=== PATIENT | female | born 1995 | race Caucasian/White ===

== ENCOUNTER → 2018-01-12 18:02 | Outpatient (CLI) | payer BC, OTHER, SELFPAY ==
[2018-01-12 20:22] LABS: Group B Strep DNA By PCR Negative (Negative); Internal Control PASS; Probe Check PASS; Specimen Processing Control PASS
== END ==
PROVIDERS: Family Provider Nurse Practitioner Family; PCP Nurse Practitioner Family; Visit Provider Nurse Practitioner Women's Health
DX: Z34.93 Encounter for supervision of normal pregnancy, unspecified, third trimester (principal); Z3A.36 36 weeks gestation of pregnancy
CPT/HCPCS: 87081; 87653

== ENCOUNTER 2018-02-05 05:55 | Inpatient (IN) | payer BC, OTHER, SELFPAY ==
[2018-02-05] MEDS: Lactated Ringers 1,000 ML 50 ML IV ×2 (06:55→10:21)
[2018-02-05 07:38] VITALS: BMI 40.5
[2018-02-05 07:42] LABS: Hematocrit 39.2 % (37-47); Hemoglobin 14.1 g/dl (12.0-15.0); Mean Corpuscular Hgb 32.4 pg (27.0-32.0); Mean Corpuscular Volume 90.1 fL (81-99); Mean Platelet Vol. 10.5 fl (6.2-12.0); Platelet Count 209 K/mm3 (150-450); RBC Distribution Width CV 13.3 % (11.6-14.6); RBC Distribution Width SD 43.4 fl (35.1-43.9); Red Blood Count 4.35 M/mm3 (4.2-5.4)
[2018-02-05 07:50] LABS: Scan Indicated on CBC? Y/N NO
[2018-02-05 08:17] LABS: ALB/GLOB Ratio 0.7 RATIO (0.9-2.4); AST(SGOT) 10 U/L (15-37); Alanine Aminotransfer ALT/SGPT 10 U/L (13-56); Albumin, Serum 2.8 g/dL (3.2-5.0); Alkaline Phosphatase 177 U/L (45-117); Anion Gap 9 (5-15); BUN 6 mg/dL (7-18); BUN/Creat Ratio 13.2 RATIO (10-20); Calcium,Total 8.6 mg/dL (8.5-10.1); Chloride 107 mmol/L (98-107); Creatinine, Serum 0.46 mg/dL (0.55-1.02); EST Glomerular Filtration Rate 181 mL/min (>60); Est Glom Filt Rate - Afr Amer 219 mL/min (>60); Estimated Creatinine Clearance 179.58 ml/min; Globulin 3.8 g/dL (2.2-4.2); Glucose 92 mg/dL (74-106); Potassium 3.8 mmol/L (3.5-5.1); Protein, Total 6.6 g/dL (6.4-8.2); Sodium Level 137 mmol/L (136-145)
[2018-02-05] MEDS: Ondansetron 4 MG/2 ML Vial IV (08:33)
[2018-02-05] MEDS: fentaNYL-bupivacaine (epidural) 100 ML BAG EPIDURAL (08:50)
[2018-02-05 08:54] LABS: Protein, Urine (Random) 58.3 mg/dL (<11.9); Protein:Creat Ratio 259 mg/g CRE (0-200)
--- NOTE | 2018-02-05 10:20 | PCM.HP.OB ---
- Problem List (1) Active labor at term Status: Acute (2) IUD contraception Status: Acute Comment: plan iud pp at 6 week visit (3) Supervision of normal , antepartum Status: Acute Qualifiers: Comment: PRR ANGELA 02/04/18 boy Dann PC gordon Obed (4) History of pre-eclampsia in prior , currently Status: Acute Comment: baby ASA at 16 weeks (5) Abnormal glucose in , antepartum Status: Acute Comment: normal 3 hour gtt History Date of Admission: 02/05/18 Final ANGELA: 02/04/18 Gestational age: 40 Weeks and 1 Days History of this : 2 yo @ 40w1d presents IAL. she has had an uncomplicated All Active Problems (Last Reviewed 02/01/18 @ 13:44 by Lyric Draper) IUD contraception (Acute) Supervision of normal , antepartum (Acute) History of pre-eclampsia in prior , currently (Acute) Abnormal glucose in , antepartum (Acute) Depression with anxiety (Acute) Evaluate anatomy not seen on prior sonogram (Ruled-out) Pertinent Past Medical History: Past Medical History (Last Reviewed 02/01/18 @ 13:44 by Lyric Draper) History of pre-eclampsia in prior , currently (Acute) history of gallbladder sugery (Acute) Past Surgical History (Last Reviewed 01/25/18 @ 14:07 by Magaly Squires) gallbladder surgery (Acute) Mom's Labs & Results 02/05/18 02/05/18 02/05/18 07:00 07:00 07:00 WBC 13.0 H RBC 4.35 Hgb 14.1 Hct 39.2 MCV 90.1 MCH 32.4 H MCHC 36.0 RDW 13.3 RDW Differential 43.4 Plt Count 209 MPV 10.5 Sodium 137 Potassium 3.8 Chloride 107 Carbon Dioxide 21.0 Anion Gap 9 BUN 6 L Creatinine 0.46 L Estim Creat Clear Calc 179.58 Est GFR (MDRD) Af Amer 219 Est GFR (MDRD) Non-Af 181 BUN/Creatinine Ratio 13.2 Glucose 92 Calcium 8.6 Total Bilirubin 0.70 AST 10 L ALT 10 L Alkaline Phosphatase 177 H Total Protein 6.6 Albumin 2.8 L Globulin 3.8 Albumin/Globulin Ratio 0.7 L U Random Total Protein Urine Creatinine Protein/Creatinin Ratio Blood Type O POSITIVE Antibody Screen NEGATIVE 02/05/18 08:25 WBC RBC Hgb Hct MCV MCH MCHC RDW RDW Differential Plt Count MPV Sodium Potassium Chloride Carbon Dioxide Anion Gap BUN Creatinine Estim Creat Clear Calc Est GFR (MDRD) Af Amer Est GFR (MDRD) Non-Af BUN/Creatinine Ratio Glucose Calcium Total Bilirubin AST ALT Alkaline Phosphatase Total Protein Albumin Globulin Albumin/Globulin Ratio U Random Total Protein 58.3 H Urine Creatinine 225.00 Protein/Creatinin Ratio 259 H Blood Type Antibody Screen Course Did the patient receive Yes care? Labs Blood Type: O RH: POSITIVE RPR/VDRL/Syphilis Nonreactive Rubella status Immune HbSAg Negative Date Done: 08/22/17 Chlamydia Negative Gonorrhea Negative HIV/AIDS Non-Reactive Group B Strep: Negative Current Obstetrical History Gestational Diabetes No Incompetent Cervix No Infertility No IUGR No Macrosomia No Hypertension/Pre-eclampsia No Placenta Previa/Abruption No PTL/PROM No Uterine anomaly No Oligohydramnios No Polyhydramnios No Multiple gestation No Past Medical History Asthma No Diabetes No Hypertension No Heart disease No Mitral valve prolapse No Neurologic/Seizure disorder/ No Migraines Kidney disease No Liver disease No Varicosities No Clotting disorders/Hx of DVT No Thyroid Dysfunction No Other medical diseases No Psychiatric disorders Yes: depression Major trauma No Abnormal PAP smear No Sleep apnea No Mammogram in the last 2 years No Social History Marital Status: Alleged father Obed Hx Smoking No Smoking Status Never smoker Allergies No Known Allergies Allergy (Verified 02/05/18 07:39) Current Medications Acetaminophen (Tylenol) 325 - 650 mg PO Q4H PRN PRN PRN Reason: PAIN OR FEVER >100.4F Al Hydroxide/Mg Hydroxide (Mylanta Ii) 15 - 30 ml PO Q4H PRN PRN PRN Reason: INDIGESTION Citric Acid/Sodium Citrate (Bicitra) 30 ml PO UD PRN Lactated Ringer's () 1,000 mls @ 50 mls/hr IV .Q20H JONATHAN Last Admin: 02/05/18 06:55 Dose: 50 mls/hr Naloxone HCl 4 mg/ Dextrose 504 mls @ 0 mls/hr IV PRN PRN; Protocol PRN Reason: TO MAINTAIN RR>10 Nalbuphine HCl (Nubain) 5 - 10 mg IV Q3H PRN PRN PRN Reason: PAIN (4-10/10) Nalbuphine HCl (Nubain) 5 mg IV Q3H PRN PRN Reason: ITCHING Stop: 02/06/18 09:24 Naloxone HCl (Narcan) 0.2 mg IV Q1M PRN PRN Reason: RR<10 AND PT UNRESPONSIVE Stop: 02/06/18 09:24 Ondansetron HCl (Zofran) 4 mg IV Q8H PRN PRN PRN Reason: NAUSEA Last Admin: 02/05/18 08:33 Dose: 4 mg Promethazine HCl (Phenergan) 6.25 - 12.5 mg IV Q4H PRN PRN; Protocol PRN Reason: IF NAUSEA PERSISTS Sodium Chloride () 5 - 15 ml IV UD JONATHAN Last Admin: 02/05/18 07:45 Dose: Not Given Smoking Status: Never smoker Alcohol: None Drug Use: none Number of Fetus(es): 1 - fht 130s moderate variability reactive no deceles toco q5-10 Review of Systems Constitutional: Denies: Chills, Fever, Weight Change HEENT: Denies: Head Aches, Sinus Congestion, Sinus Drainage Cardiovascular: Denies: Chest Pain, Palpitations Respiratory: Denies: Cough, Shortness of breath at rest, Sputum production Gastrointestinal: Reports: Abdominal Pain, Nausea. Denies: Vomiting Genitourinary: Denies: Dysuria Gynecological: Reports: Vaginal bleeding, Vaginal discharge Musculoskeletal: Denies: Joint Pain, Joint Tenderness Skin: Denies: Rash, Wounds Neurological: Denies: Numbness, Tingling, Focal weakness Psychiatric: Denies: Anxiety, Depression, Homicidal Ideations, Suicidal Ideations Hematologic/ Lymphatic: Denies: Easy Bruising, Easy Bleeding Physical Exam General: Alert, Oriented x3 Cardiovascular: Regular rate Lungs: Normal air movement Abdomen: Soft, Gravid Estimated gestational size: Appropriate for gestational size Presentation: Cephalic Cervix Dilation (cm): 5 Assessment/Plan Active and Suspected Problems (Last Reviewed 02/01/18 @ 13:44 by Lyric Draper) Active labor at term (Acute) 22 yo @ 40w1d presents IAL expectant managment arom clear fluid gbs negative borderline elevated bps- negative proteinuria and normal pree labs
[2018-02-05] MEDS: Oxytocin 30 units/NS 500 ml 30 UNITS/500 ML IV.SOLN 334 UNITS IV (12:01)
[2018-02-05] MEDS: Oxytocin 30 units/NS 500 ml 30 UNITS/500 ML IV.SOLN 167 UNITS IV (12:35)
[2018-02-05] MEDS: 0.9% Saline Lock 10 ML Syringe IV (14:00)
[2018-02-05 16:27] VITALS: BP 116/60; PULSE 103; RESP 16; TEMP 37
[2018-02-05 20:05] VITALS: BP 132/80; PULSE 87; RESP 16; TEMP 36.8; O2SAT 98
[2018-02-05] MEDS: Naproxen 250 MG Tablet PO (20:11)
[2018-02-06 00:40] VITALS: BP 137/96; PULSE 77; RESP 16; TEMP 36.3; O2SAT 98
[2018-02-06 03:45] VITALS: BP 136/94; PULSE 76; RESP 16; TEMP 36.4; O2SAT 98
--- NOTE | 2018-02-06 07:40 | PCM.PN.OB ---
Patient Problems: Active and Suspected Problems (Last Reviewed 02/01/18 @ 13:44 by Lyric Draper) Active labor at term (Acute) Subjective: Denies SOB, CP, NV. Doing well. - Physical Exam General: Alert, Oriented x3 Abdomen: Non Tender, - - FF below U Vital Signs Temp Pulse Resp BP Pulse Ox 97.6 F L 76 16 136/94 H 98 02/06/18 03:45 02/06/18 03:45 02/06/18 03:45 02/06/18 03:45 02/06/18 03:45 Oxygen Delivery Method Room Air Weight: 251 lb Body Mass Index (BMI) 40.5 Intake and Output for Last 24 Hours 02/04/18 02/05/18 02/06/18 23:59 23:59 23:59 Intake Total 1874 / 1874 Output Total 500 / 500 Balance 1374 / 1374 Laboratory Tests Past 24 Hrs 02/05/18 02/05/18 02/05/18 07:00 07:00 07:00 WBC 13.0 H RBC 4.35 Hgb 14.1 Hct 39.2 MCV 90.1 MCH 32.4 H MCHC 36.0 RDW 13.3 RDW Differential 43.4 Plt Count 209 MPV 10.5 Sodium 137 Potassium 3.8 Chloride 107 Carbon Dioxide 21.0 Anion Gap 9 BUN 6 L Creatinine 0.46 L Estim Creat Clear Calc 179.58 Est GFR (MDRD) Af Amer 219 Est GFR (MDRD) Non-Af 181 BUN/Creatinine Ratio 13.2 Glucose 92 Calcium 8.6 Total Bilirubin 0.70 AST 10 L ALT 10 L Alkaline Phosphatase 177 H Total Protein 6.6 Albumin 2.8 L Globulin 3.8 Albumin/Globulin Ratio 0.7 L U Random Total Protein Urine Creatinine Protein/Creatinin Ratio Blood Type O POSITIVE Antibody Screen NEGATIVE 02/05/18 08:25 WBC RBC Hgb Hct MCV MCH MCHC RDW RDW Differential Plt Count MPV Sodium Potassium Chloride Carbon Dioxide Anion Gap BUN Creatinine Estim Creat Clear Calc Est GFR (MDRD) Af Amer Est GFR (MDRD) Non-Af BUN/Creatinine Ratio Glucose Calcium Total Bilirubin AST ALT Alkaline Phosphatase Total Protein Albumin Globulin Albumin/Globulin Ratio U Random Total Protein 58.3 H Urine Creatinine 225.00 Protein/Creatinin Ratio 259 H Blood Type Antibody Screen Medical Necessity - Tobacco Use Smoking Status: Never smoker Assessment/Plan Active and Suspected Problems (Last Reviewed 02/01/18 @ 13:44 by Lyric Draper) Active labor at term (Acute) PPD #1 Doing well. Normal lochia. Pain controlled with OTC Aleve. Bottle feeding. Rh positive. Plans home later today
--- NOTE | 2018-02-06 07:43 | DCINST_ITS ---
Discharge Diet: No Restrictions Discharge Activity: Return to Normal Activity, May not drive while taking narcotic pain medications., May Shower May resume sexual activity in: 4-6 weeks Additional Activity Instructions:: Nothing in the vagina for 4-6 weeks. You may return to work/school in 6 weeks. Call your doctor if your incision/area has: Continuous Slow Oozing, Sudden Increased Bleeding, Increased Pain/ Swelling, Increased Redness, Foul Smelling Discharge Additional Instructions: If you experience any of the following, contact your healthcare provider. * Bleeding that soaks a pad every hour for 2 hours * Fever 100.4 or higher * Unrelieved incision or abdominal pain * Swelling, redness, discharge or bleeding from your incision or episiotomy site * Your incision begins to separate * Problems urinating (including inability to urinate or burning while urinating) . * Visual changes * Severe headache * Flu-like symptoms * Pain or redness in one of both of your breasts * Pain, warmth, tenderness or swelling in your legs, especially the calf area * Frequent nausea and vomiting * Symptoms of depression or anxiety If you experience any of the following, call 911 or go to the nearest Emergency Room. * Chest pain * Problems breathing * Seizure activity * Partial or complete paralysis of a body part, slurred speech, weakness or drooping of the face, or a sudden inability to walk or hold your balance Allergies/Adverse Reactions: Allergies No Known Allergies Allergy (Verified 02/05/18 07:39) Medications to take at Discharge vitamins no.106-iron 27.5 mg-folate no.6 1 mg-dha capsule 1 cap PO QDAY 09/25/17 ranitidine 150 mg tablet 150 mg PO BID #60 tab 09/25/17 citalopram 20 mg tablet 20 mg PO QDAY #30 tab 12/01/17 When: Call to make an appointment with your doctor in 6 weeks. If you had elevated Blood Pressure or 4th degree laceration you will need to be seen in 2 weeks. Primary Care Physician: Shonna Villanueva NP-C [Primary Care Provider] -
[2018-02-06 08:30] VITALS: BP 127/65; PULSE 88; RESP 18; TEMP 36.6; O2SAT 98
--- NOTE | 2018-02-06 08:31 | PCM.OB.VAG ---
- Problem List (1) Active labor at term Status: Acute (2) IUD contraception Status: Acute Comment: plan iud pp at 6 week visit (3) Supervision of normal , antepartum Status: Acute Qualifiers: Comment: PRR ANGELA 02/04/18 boy Dann leyva Obed (4) History of pre-eclampsia in prior , currently Status: Acute Comment: baby ASA at 16 weeks (5) Abnormal glucose in , antepartum Status: Acute Comment: normal 3 hour gtt Vaginal Delivery Maternal Presentation: Active Labor ial Amniotic Membrane Rupture Type: Artificial Amniotic Fluid Description: Clear Final ANGELA: 02/04/18 Gestational age: 40 Weeks and 2 Days Date of Procedure: 02/05/18 Pre-Operative Diagnosis: ial Post-Operative Diagnosis: same Surgery/ Procedure Performed: Spontaneous Vaginal Delivery Type of Anesthesia: Epidural Description of Procedure: Patient began pushing and delivered the head in the CHINEDU presentation. The head was delivered atraumatically . The anterior and posterior shoulders delivered without complication followed by the rest of the infant and the infant was placed on the maternal abdomen. Delayed cord clamping was employed for approximately 60 seconds. Cord was clamped and cut and gentle traction was applied to the cord and the placenta delivered spontaneously immediately following it was noted to be intact with three-vessel cord. The perineum and vagina were inspected and noted to have a small first-degree perineal laceration that was repaired in the usual fashion with 3-0 Vicryl Rapide. EBL was 300 cc. Patient and infant tolerated delivery well. Presentation: CHINEDU Placental Delivery Description: Spontaneous Cord Entanglement: None Episiotomy Description: None Laceration: Perineal Extension/lac, 1st degree Medications given after delivery: IV Pitocin Complications: None
[2018-02-06 11:59] VITALS: BP 113/67; PULSE 88; RESP 18; TEMP 36.7; O2SAT 96
== END 2018-02-06 14:15 | disposition home or self-care (01) | DRG 775 ==
PROVIDERS: Admitting Provider Obstetrics & Gynecology; Family Provider Nurse Practitioner Family; PCP Nurse Practitioner Family; Visit Provider Obstetrics & Gynecology
DX: O48.0 Post-term pregnancy (principal); Z3A.40 40 weeks gestation of pregnancy; Z37.0 Single live birth; O70.0 First degree perineal laceration during delivery
CPT/HCPCS: 59050; 80053; 82570; 84156; 85027; 86850; 86900; 99218; J7120; A4216; G0378; J2405

== ENCOUNTER → 2021-07-13 | Outpatient (CLI) | payer OTHER, SELFPAY ==
[2021-07-16 19:58] LABS: HPV Reflexed? NOT INDICATED
== END | disposition home or self-care (01) ==
LOC: LABSPEC 14:09
PROVIDERS: Referring Provider Physician Assistant; Visit Provider Physician Assistant
DX: Z12.4 Encounter for screening for malignant neoplasm of cervix (principal)
CPT/HCPCS: 88175; G0145

== ENCOUNTER → 2023-03-23 | Outpatient (CLI) | payer OTHER, SELFPAY ==
[2023-03-23 10:24] LABS: ALB/GLOB Ratio 1.1 RATIO (0.9-2.4); AST(SGOT) 19 U/L (15-37); Alanine Aminotransfer ALT/SGPT 39 U/L (13-56); Alkaline Phosphatase 77 U/L (45-117); Anion Gap 7 (5-15); BUN 7 mg/dL (7-18); BUN/Creat Ratio 9.9 RATIO (10-20); Calcium,Total 9.3 mg/dL (8.5-10.1); Chloride 106 mmol/L (98-107); Cholesterol 170 mg/dL (200); Creatinine, Serum 0.71 mg/dL (0.55-1.02); EST Glomerular Filtration Rate 105 mL/min (>60); Est Glom Filt Rate - Afr Amer 127 mL/min (>60); Globulin 3.5 g/dL (2.2-4.2); Glucose 118 mg/dL (74-106); High Density Lipoprotein 60 mg/dL; Potassium 3.8 mmol/L (3.5-5.1); Protein, Total 7.5 g/dL (6.4-8.2); Sodium Level 137 mmol/L (136-145); T4 Free Direct 1.04 ng/dL (0.76-1.46); Thyroid Stim Hormone (TSH) 0.96 uIU/mL (0.358-3.74); Triglycerides 109 mg/dL; Very Low Density Lipoprotein 22 mg/dL (5-40)
== END | disposition home or self-care (01) ==
LOC: PAVLAB 09:34
PROVIDERS: Nurse Practitioner Women's Health; Referring Provider Obstetrics & Gynecology; Visit Provider Obstetrics & Gynecology
DX: R63.5 Abnormal weight gain (principal); Z13.1 Encounter for screening for diabetes mellitus; Z13.220 Encounter for screening for lipoid disorders; Z13.29 Encounter for screening for other suspected endocrine disorder; Z13.21 Encounter for screening for nutritional disorder
CPT/HCPCS: 36415; 80053; 80061; 82306; 84439; 84443

== ENCOUNTER → 2023-05-02 | Outpatient (CLI) | payer OTHER, SELFPAY ==
[2023-05-05 07:08] LABS: Chlamydia By Nucleic Acid AMP Negative (Negative); Gonococcus By Nucleic Acid AMP Negative (Negative)
== END | disposition home or self-care (01) ==
LOC: LABSPEC 11:53
PROVIDERS: Referring Provider Obstetrics & Gynecology; Visit Provider Obstetrics & Gynecology
DX: Z34.90 Encounter for supervision of normal pregnancy, unspecified, unspecified trimester (principal)
CPT/HCPCS: 87086; 87088; 87491; 87591

== ENCOUNTER → 2023-05-03 | Outpatient (CLI) | payer OTHER, SELFPAY ==
--- NOTE | 2023-05-03 18:26 | US_ITS ---
STUDY: FIRST TRIMESTER OBSTETRICAL ULTRASOUND REASON FOR EXAM: Female, 27 years old THREATENED LMP: 02/20/2023 TECHNIQUE: Transvaginal TECHNICAL QUALITY: Adequate. PRIOR ULTRASOUND: None. FINDINGS: There is visualization of a single gestational sac in a normal intrauterine position. The mean sac diameter (MSD) measures 45 mm, indicating an estimated gestational age (EGA) of 10 weeks, 0 days. The gestational sac shape is within normal limits. There is a visualized yolk sac. The yolk sac measures 5 mm. The placenta is non-visualized. There is visualization of a live embryo. The crown-rump length (CRL) measures 41 mm, indicating an estimated gestational age (EGA) of 10 weeks, 5 days. There is demonstrated cardiac activity with a heart rate of 174 bpm. The estimated gestation age (EGA) by LMP is 10 weeks, 2 days. The estimated date of delivery (ANGELA) by LMP is 11/27/2023. The estimated gestation age (EGA) by US is 10 weeks, 3 days. The estimated date of delivery (ANGELA) by US is to 1124. The uterus measures 12.0 x 6.2 x 8.4 cm. There is no demonstrated uterine fibroid. The cervix is closed. The right ovary measures 2.8 x 1.6 x 2.1 cm. There is no right ovarian cyst. There is no visualized right adnexal mass or complex lesion. The left ovary measures 3.0 x 1.8 x 2.4 cm. There is no left ovarian cyst. There is no visualized left adnexal mass or complex lesion. There is no fluid in the cul de sac. US/Init OB < 14Wks US IMPRESSION: Living intrauterine of 10 weeks 3 days as described above. Electronically Signed: José Miguel Huber MD at 21:24 EDT ,
== END | disposition home or self-care (01) ==
PROVIDERS: Referring Provider Obstetrics & Gynecology; Visit Provider Obstetrics & Gynecology
DX: O20.0 Threatened abortion (principal); Z3A.00 Weeks of gestation of pregnancy not specified
CPT/HCPCS: 76801

== ENCOUNTER → 2023-05-10 | Outpatient (CLI) | payer OTHER, SELFPAY ==
[2023-05-10 09:12] LABS: Absolute Lymphocyte Count 1.15 X10^3/uL (0.83-4.51); Absolute Neutrophil Count 5.4 X10^3/uL (2.0-7.7); Basophil# 0.02 X10^3/uL; Basophil% 0.3 % (0-1); Eosinophil# 0.07 X10^3/uL; Hemoglobin 14.3 g/dL (12.0-15.0); Lymphocyte # 1.15 X10^3/ul (0.83-4.51); Lymphocyte % 16.6 % (19-41); Mean Corp Hgb Conc 35.8 g/dL (32-36); Mean Corpuscular Hgb 31.7 pg (27.0-32.0); Mean Corpuscular Volume 88.7 fL (81-99); Mean Platelet Vol. 9.1 fl (6.2-12.0); Monocyte# 0.24 X10^3/uL; Monocyte% 3.5 % (0-10); NRBC Flagged by Analyzer 0 % (0-5); Neutrophil # 5.42 X10^3/uL (2.7-7.7); Neutrophil % 78.3 % (47-70); Platelet Count 258 K/mm3 (150-450); RBC Distribution Width CV 11.9 % (11.6-14.6); RBC Distribution Width SD 37.8 fl (35.1-43.9); Red Blood Count 4.51 M/mm3 (4.2-5.4); White Blood Count 6.9 K/mm3 (4.4-11.0)
[2023-05-10 09:38] LABS: AST(SGOT) 10 U/L (15-37); Alanine Aminotransfer ALT/SGPT 23 U/L (13-56); Albumin, Serum 3.5 g/dL (3.2-5.0); Alkaline Phosphatase 58 U/L (45-117); Anion Gap 7 (5-15); BUN 5 mg/dL (7-18); BUN/Creat Ratio 7.1 RATIO (10-20); Calcium,Total 8.6 mg/dL (8.5-10.1); Chloride 106 mmol/L (98-107); EST Glomerular Filtration Rate 106 mL/min (>60); Est Glom Filt Rate - Afr Amer 128 mL/min (>60); Globulin 3.5 g/dL (2.2-4.2); Glucose 198 mg/dL (74-106); Glucose Challenge Gest 1H 50g 198 mg/dL (70-140); Potassium 3.5 mmol/L (3.5-5.1); Sodium Level 136 mmol/L (136-145)
[2023-05-10 10:06] LABS: NATERA MAILED SPECIMEN
[2023-05-10 10:38] LABS: HIV - WCH Non-Reactive (Nonreactive); Hepatitis B Surface Antigen Non-Reactive (Nonreactive); Hepatitis C Antibody Non-Reactive (Nonreactive); Rubella IgG Reactive (Nonreactive); Syphilis Antibodies Non-reactive
== END | disposition home or self-care (01) ==
PROVIDERS: Referring Provider Obstetrics & Gynecology; Visit Provider Obstetrics & Gynecology
DX: Z34.90 Encounter for supervision of normal pregnancy, unspecified, unspecified trimester (principal)
CPT/HCPCS: 36415; 80053; 82950; 85025; 86703; 86762; 86780; 86803; 86850; 86900; 86901; 87340

== ENCOUNTER 2023-07-24 13:16 | Emergency (ER) | payer OTHER, SELFPAY ==
[2023-07-24 13:17] VITALS: BP 128/62; PULSE 111; RESP 14; TEMP 36.4; O2SAT 98; BMI 44.1
--- NOTE | 2023-07-24 13:54 | CT_ITS ---
STUDY: CT ABDOMEN AND PELVIS WITH CONTRAST REASON FOR EXAM: Female, 28 years old. Abdominal pain, 22 weeks . RADIATION DOSAGE (If Supplied By Facility): CTDIvol = ( 14.27 ) mGy, DLP = ( 1199.67 ) mGycm TECHNIQUE: Transaxial images were obtained from the dome of the diaphragm to the symphysis pubis without oral contrast. ml of 100mL Isovue-300 contrast was administered. Sagittal and coronal images were reconstructed. Individualized dose optimization techniques were used for this CT. COMPARISON: OB ultrasound dated May 03, 2023 FINDINGS: The visualized lung bases are unremarkable. The visualized portions of the heart are within normal limits. Normal liver. There are surgical clips in the gallbladder fossa consistent with a prior cholecystectomy. Minimal splenic enlargement at 14 cm. The spleen is otherwise normal.. Normal pancreas. Normal bilateral adrenal glands. A 1 mm punctate calyceal stone is present in the upper pole calyx of the right kidney as seen on image 47/134 series 2. A 4 mm calyceal stone is seen in the lower pole of the left kidney. No visualized hydronephrosis. Normal remaining aspects of the left kidney. Single intrauterine fetus in the second/third trimester noted. The uterus is otherwise grossly unremarkable. No adnexal abnormalities are seen. No ascites or focal fluid collections are present abdomen or pelvis. Normal visualized stomach. Normal small intestine. Normal colon. The appendix is visualized and appears normal. Normal abdominal aorta. Normal inferior vena cava. Normal retroperitoneum. Normal urinary bladder. Normal abdominal wall. There are diffuse degenerative changes of the visualized lumbar spine. CT/Abdomen/Pelvis W IV Cont ONLY IMPRESSION: 1. Bilateral nonobstructing kidney stones 2. A 1 mm punctate calyceal stone is present in the upper pole calyx of the right kidney as seen on image 47/134 series 2. A 4 mm calyceal stone is seen in the lower pole of the left kidney. No visualized hydronephrosis. Normal remaining aspects of the left kidney. 3. Single intrauterine fetus in the second/third trimester noted. The uterus is otherwise grossly unremarkable. No adnexal abnormalities are seen. No ascites or focal fluid collections are present abdomen or pelvis. Electronically Signed: Guanako Blair MD at 15:47 EDT Reading Location ID and State: [facility] / [place] , Service support ,
[2023-07-24] MEDS: 0.9% Normal Saline (500mL Bag) 500 ML 1000 ML IV (14:05)
[2023-07-24 14:06] LABS: Bacteria 0 SEEN /hpf (None Seen); Mucous, Urine 0 SEEN /hpf (<or=2+); Red Blood Cells-Urine 0 SEEN /hpf (0-5)
[2023-07-24 14:09] LABS: Color, Urine Straw (Yellow); Glucose, Dipstick Normal (Normal); Ketone-Dipstick 50 mg/dl (Negative); Leukocyte Esterase-Dipstick 500 /ul (Negative); Nitrite-Dipstick Negative (Negative); Occult Blood-Urine Negative /ul (Negative); Protein-Dipstick Negative (Negative); Urine Bilirubin Dipstick Negative (Negative); Urine Clarity Clear (Clear); Urine Urobilinogen Normal (Normal)
[2023-07-24 14:17] LABS: Absolute Lymphocyte Count 0.48 X10^3/uL (0.83-4.51); Absolute Neutrophil Count 4.9 X10^3/uL (2.0-7.7); Basophil# 0.02 X10^3/uL; Basophil% 0.3 % (0-1); Eosinophil# 0.01 X10^3/uL; Eosinophils% 0.2 % (0-5); Hematocrit 37.6 % (37-47); Hemoglobin 13.3 g/dL (12.0-15.0); Lymphocyte # 0.48 X10^3/ul (0.83-4.51); Lymphocyte % 8.3 % (19-41); Mean Corp Hgb Conc 35.4 g/dL (32-36); Mean Corpuscular Hgb 32.2 pg (27.0-32.0); Mean Platelet Vol. 9.5 fl (6.2-12.0); Monocyte# 0.34 X10^3/uL; Monocyte% 5.9 % (0-10); NRBC Flagged by Analyzer 0 % (0-5); Neutrophil # 4.91 X10^3/uL (2.7-7.7); POSITIVE DIFFERENTIAL YES; Platelet Count 179 K/mm3 (150-450); RBC Distribution Width CV 13.1 % (11.6-14.6); RBC Distribution Width SD 42.5 fl (35.1-43.9); Red Blood Count 4.13 M/mm3 (4.2-5.4); White Blood Count 5.8 K/mm3 (4.4-11.0)
[2023-07-24 14:18] LABS: Squamous Epithelial Cells - UA 0-5 SEEN /hpf (5-10); White Blood Cells 5-10 SEEN /hpf (0-5)
[2023-07-24 14:34] LABS: ALB/GLOB Ratio 0.9 RATIO (0.9-2.4); AST(SGOT) 19 U/L (15-37); Alanine Aminotransfer ALT/SGPT 31 U/L (13-56); Alkaline Phosphatase 58 U/L (45-117); Anion Gap 6 (5-15); BUN 3 mg/dL (7-18); BUN/Creat Ratio 5.2 RATIO (10-20); Calcium,Total 8.8 mg/dL (8.5-10.1); Chloride 105 mmol/L (98-107); Creatinine, Serum 0.58 mg/dL (0.55-1.02); EST Glomerular Filtration Rate 132 mL/min (>60); Est Glom Filt Rate - Afr Amer 160 mL/min (>60); Estimated Creatinine Clearance 135.19 ml/min; Globulin 3.2 g/dL (2.2-4.2); Glucose 90 mg/dL (74-106); Potassium 3.7 mmol/L (3.5-5.1); Protein, Total 6.2 g/dL (6.4-8.2); Sodium Level 136 mmol/L (136-145)
[2023-07-24 14:39] LABS: Differential Indicated SCAN CRITERIA MET
--- NOTE | 2023-07-24 15:02 | EDS_ITS ---
HPI History of Present Illness Chief Complaint: Abd Pain Narrative Narrative: To the emergency department with right lower quadrant abdominal pain, she is 22 weeks . No nausea or vomiting or anorexia. No vaginal bleeding. No back pain or flank pain. She does not have any urinary symptoms. [facility] Medical History Gestational diabetes History of pre-eclampsia in prior , currently Home Medications fluoxetine 20 mg capsule (Prozac) 20 mg PO DAILY #30 caps 03/23/23 [Rx Last Ta ciara Unknown] famotidine 10 mg tablet 10 mg PO DAILY 04/25/23 [History Last Taken Unknown] vitamins no.163-iron bis-gly 20 mg-folate no.10 1 mg tablet (PNV Tabs 20-1) 1 tab PO DAILY 04/25/23 [History Last Taken Unknown] ondansetron 4 mg disintegrating tablet 4 mg PO Q4H PRN nausea and vomiting #60 tabs 04/26/23 [Rx Last Taken Unknown] blood sugar diagnostic (Blood Glucose Test strips) #120 ea 05/10/23 [Rx Last Taken Unknown] blood-glucose meter #1 ea 05/10/23 [Rx Last Taken Unknown] lancets #200 ea 05/10/23 [Rx Last Taken Unknown] insulin NPH isoph U-100 human 100 unit/mL subcutaneous suspension (Novolin N NPH U-100 Insulin isophane) 10 unit subcut QPM 06/26/23 [History Last Taken Unknown] Allergy/AdvReac Type Severity Reaction Status Date / Time No Known Allergies Allergy Verified 07/24/23 13:17 Family History Mother Hypertension Surgical History Hx laparoscopic cholecystectomy [place] teeth extracted Social History adopted: No household members: spouse, children and other details: Mother number of children: 2 current occupational status: employed current occupation: [employer] current occupational exposures/hazards: No pets and animals: Yes pets and animals: dog(s) history of recent travel: Yes ([place]) out of state: Yes out of country: No sexually active: Yes Smoking Status: Never smoker second hand exposure: No alcohol intake: never substance use type: does not use well-balanced diet: daily or most days caffeine: Yes Type: tea Number of servings: 1 eating out: 1-3 times/week during the past year weight has: increased > 10 lbs what type of physical activity do you participate in: walking frequency: 3-4 times per week duration: 15-30 minutes/day linnea/congregational: None seatbelt use: always do you feel safe at home: Yes additional social history: spouse 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- [employer]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[employer] ROS ROS ED ROS Narrative All systems negative except as indicated General: No fever Eyes: No visual changes ENT: No upper airway congestion, normal voice Neck: No neck pain Cardiovascular: No chest pain Respiratory: No shortness of breath or cough Gastrointestinal: Abdominal pain as in HPI Genitourinary: No dysuria Musculoskeletal: Denies myalgias no difficulty with ambulation Skin: No rash Neurological: No memory loss, confusion or any focal weakness EXAM Physical Exam Narrative Exam Narrative: Physical exam General: Well nourished, Well developed, No Acute Distress Head: Normocephalic, Atraumatic Eyes: Conjunctiva not pale ENT: Moist mucous membranes Neck: Supple, Nontender, No lymphadenopathy Cardiovascular: Regular rate, Regular rhythm Respiratory: No distress, CTA bilaterally Abdomen: Soft,, there is tenderness in the right lower quadrant and right mid quadrant. There is slight guarding but no rebound. Back: Nontender, Normal Inspection. Negative for: CVA tenderness Extremities: Nontender, No edema Skin: Normal color, No rash Neurological: Alert, Normal Strength, Normal Sensation Const Vital Signs: 07/24/23 13:17 Temperature 97.6 F L Temperature Source Temporal Pulse Rate 111 H Respiratory Rate 14 Blood Pressure 128/62 H Blood Pressure Mean 84 Pulse Ox 98 Oxygen Delivery Method Room Air MDM MDM MDM Narrative Medical decision making narrative: Patient was seen by OB prior and they are worried about appendicitis after my initial exam I had similar concerns, she is however she is second trimester and risk of radiation is relatively low compared to missing appendicitis. We made a decision together with the patient and she is okay with the CT. This was done. Bilateral kidney stones which are passing of a 2 on the right side could be very close to passing which may cause some of her symptoms. Regardless she feels well, she does not feel ill now does not require analgesia and I will discharge her home. She did have some leuk esterase on urinalysis but the rest the urinalysis was negative I do not believe she has a UTI and she is asymptomatic. Lab Data Labs: Laboratory Results - last 24 hr 07/24/23 07/24/23 14:00 14:05 WBC 5.8 RBC 4.13 L Hgb 13.3 Hct 37.6 MCV 91.0 MCH 32.2 H MCHC 35.4 RDW Std Deviation 42.5 RDW Coeff of Lisbeth 13.1 Plt Count 179 MPV 9.5 Immature Gran % (Auto) 0.300 Neut % (Auto) 85.0 H Lymph % (Auto) 8.3 L Tillman % (Auto) 5.9 Eos % (Auto) 0.2 Baso % (Auto) 0.3 Absolute Neuts (auto) 4.9 Absolute Lymphs (auto) 0.48 L Nucleated RBC % 0 Sodium 136 Potassium 3.7 Chloride 105 Carbon Dioxide 25.0 Anion Gap 6 BUN 3 L Creatinine 0.58 Estim Creat Clear Calc 135.19 Est GFR (MDRD) Af Amer 160 Est GFR (MDRD) Non-Af 132 BUN/Creatinine Ratio 5.2 L Glucose 90 Calcium 8.8 Total Bilirubin 0.70 AST 19 ALT 31 Alkaline Phosphatase 58 Total Protein 6.2 L Albumin 3.0 L Globulin 3.2 Albumin/Globulin Ratio 0.9 Urine Color Straw Urine Clarity Clear Urine pH 7.0 Ur Specific [place] 1.010 Urine Protein Negative Urine Glucose (UA) Normal Urine Ketones 50 H Urine Occult Blood Negative Urine Nitrite Negative Urine Bilirubin Negative Urine Urobilinogen Normal Ur Leukocyte Esterase 500 H Urine RBC 0 SEEN Urine WBC 5-10 SEEN Ur Squamous Epith Cells 0-5 SEEN Urine Bacteria 0 SEEN Urine Mucus 0 SEEN Radiography Diagnostic Testing: Clinical Impression(s) from Imaging Studies Abdomen/Pelvis CT 07/24/23 13:54 IMPRESSION: 1. Bilateral nonobstructing kidney stones 2. A 1 mm punctate calyceal stone is present in the upper pole calyx of the right kidney as seen on image 47/134 series 2. A 4 mm calyceal stone is seen in the lower pole of the left kidney. No visualized hydronephrosis. Normal remaining aspects of the left kidney. 3. Single intrauterine fetus in the second/third trimester noted. The uterus is otherwise grossly unremarkable. No adnexal abnormalities are seen. No ascites or focal fluid collections are present abdomen or pelvis. Electronically Signed: Guanako Blair MD at 15:47 EDT , Discharge Plan Triage Chief Complaint: Abd Pain ED Provider: Rio Cook Dx/Rx/DC Orders Clinical Impression: Kidney stones, Abdominal pain Instructions: Kidney Stones Expectant Tx Prescriptions: No Action fluoxetine [Prozac] 20 mg capsule 20 mg PO DAILY Qty: 30 12RF famotidine 10 mg tablet 10 mg PO DAILY PNV Tabs 20-1 20 mg iron- 1 mg tablet 1 tab PO DAILY Novolin N NPH U-100 Insulin 100 unit/mL suspension 10 unit subcut QPM ondansetron 4 mg tablet,disintegrating 4 mg PO Q4H PRN (Reason: nausea and vomiting) Qty: 60 2RF (DME) blood-glucose meter Misc See Rx Instructions .MEDSUPPLY Qty: 1 0RF Rx Instructions: As directed- Test fasting and 2 hours after meals (DME) Blood Glucose Test Strip See Rx Instructions .Route Qty: 120 8RF Rx Instructions: As directed-fasting and 2 HR post meals (DME) lancets Misc See Rx Instructions .MEDSUPPLY Qty: 200 8RF Rx Instructions: As directed Primary Care Provider: Lindsey Dalal Referrals: Mary Mckeon MD [Med Staff - Active Staff] - 3-5 Days Lindsey Dalal, [employer] WORK[employer] HELPER-C [Primary Care Provider] - Disposition Disposition: Home, Self Care
== END 2023-07-24 16:01 | disposition home or self-care (01) ==
PROVIDERS: Emergency Provider Emergency Medicine; PCP Nurse Practitioner Family; Visit Provider Emergency Medicine
DX: O99.891 Other specified diseases and conditions complicating pregnancy (principal); Z3A.22 22 weeks gestation of pregnancy; Z90.49 Acquired absence of other specified parts of digestive tract; N20.2 Calculus of kidney with calculus of ureter
CPT/HCPCS: 74177; 80053; 81001; 85025; 96360; 99283; J7040; Q9967; A4216

== ENCOUNTER → 2023-08-21 | Outpatient (CLI) | payer OTHER, SELFPAY ==
[2023-08-21 10:38] LABS: Absolute Lymphocyte Count 1.35 X10^3/uL (0.83-4.51); Absolute Neutrophil Count 6.1 X10^3/uL (2.0-7.7); Basophil# 0.02 X10^3/uL; Basophil% 0.3 % (0-1); Eosinophil# 0.05 X10^3/uL; Eosinophils% 0.6 % (0-5); Hematocrit 40.6 % (37-47); Lymphocyte # 1.35 X10^3/ul (0.83-4.51); Mean Corp Hgb Conc 34.5 g/dL (32-36); Mean Corpuscular Hgb 31.3 pg (27.0-32.0); Mean Corpuscular Volume 90.6 fL (81-99); Mean Platelet Vol. 9.8 fl (6.2-12.0); Monocyte# 0.37 X10^3/uL; Monocyte% 4.6 % (0-10); NRBC Flagged by Analyzer 0 % (0-5); Neutrophil # 6.13 X10^3/uL (2.7-7.7); Platelet Count 234 K/mm3 (150-450); RBC Distribution Width CV 13.1 % (11.6-14.6); RBC Distribution Width SD 42.8 fl (35.1-43.9); Red Blood Count 4.48 M/mm3 (4.2-5.4)
[2023-08-21 11:34] LABS: HIV - WCH Non-Reactive (Nonreactive); Syphilis Antibodies Non-reactive
== END | disposition home or self-care (01) ==
LOC: PAVLAB 10:17
PROVIDERS: Advanced Practice Midwife; Referring Provider Obstetrics & Gynecology; Visit Provider Obstetrics & Gynecology
DX: O09.90 Supervision of high risk pregnancy, unspecified, unspecified trimester (principal); Z3A.00 Weeks of gestation of pregnancy not specified
CPT/HCPCS: 36415; 85025; 86703; 86780

== ENCOUNTER → 2023-10-06 | Outpatient (CLI) | payer OTHER, SELFPAY ==
--- NOTE | 2023-10-06 12:10 | US_ITS ---
STUDY: OBSTETRICAL ULTRASOUND - BIOPHYSICAL PROFILE REASON FOR EXAM: Female, 28 years old non reactive NST LMP: February 20, 2023. PRIOR ULTRASOUND: Comparison is made with prior study May 03, 2023. TECHNIQUE: Transabdominal TECHNICAL QUALITY: Adequate. FINDINGS: There is a single intrauterine fetus. The fetus is in a cephalic presentation. There is demonstrated cardiac activity with a heart rate of 145 bpm. There is a normal amniotic fluid volume. The largest amniotic fluid pocket measures 5.5 cm. The amniotic fluid index (TATI) is 18.97 cm. The placenta is fundal in location. There are Grade 1 placental changes. Age by LMP: 32 weeks, 4 days. ANGELA by LMP: February 20, 2023. age by prior US: 32 weeks, 5 days. ANGELA by prior US: November 26, 2022. BIOPHYSICAL PROFILE: Breathing Movements (FBM): 2 Gross Body Movements (GBM): 2 Tone (FT): 2 Amniotic Fluid Volume (AFV): 2 TOTAL SCORE: / 8 US/Biophysical Prof W/O Non Stres IMPRESSION: Normal biophysical profile of 05/23. Electronically Signed: Sameer Chandra MD at 13:19 EST ,
== END | disposition home or self-care (01) ==
LOC: US 12:10
PROVIDERS: PCP Nurse Practitioner Family; Referring Provider Obstetrics & Gynecology; Visit Provider Obstetrics & Gynecology
DX: O28.8 Other abnormal findings on antenatal screening of mother (principal)
CPT/HCPCS: 76819

== ENCOUNTER → 2023-10-25 | Outpatient (CLI) | payer OTHER, SELFPAY ==
--- OUTSIDE RECORDS SUMMARY | 2023-10-25 11:46 | XMS RPT_ITS | CCD ---
Author Name Unknown Address [address] [place] [address] Organization [facility] Care Team Providers Care Electronics Utility Worker Name Role Phone Lory Loaiza MD Unavailable [phone] YOEL VERDUZCO Unavailable Unavailable BRENDA RODRIGUEZ Unavailable Unavailable NICO MOREJON Attending Unavailable NICO MOREJON Primary Care Unavailable NICO MOREJON Admitting Unavailable LEONEL, BRIANA Consulting Unavailable PROVIDER, UNKNOWN Consulting Unavailable LEONEL, BRIANA Consulting Unavailable UNGERER GEOVANNI ADULT PSYCHIATRIST Attending Unavailable UNGERER, GEOVANNI ADULT PSYCHIATRIST Primary Care Unavailable UNGERER, GEOVANNI ADULT PSYCHIATRIST Admitting Unavailable PROVIDER, UNKNOWN Consulting Unavailable UNGERER, GEOVANNI ADULT PSYCHIATRIST Attending Unavailable UNGERER, GEOVANNI ADULT PSYCHIATRIST Primary Care Unavailable UNGERER, GEOVANNI ADULT PSYCHIATRIST Admitting Unavailable LEONEL, BRIANA Consulting Unavailable PROVIDER, UNKNOWN Consulting Unavailable LEONEL, BRIANA Consulting Unavailable [facility] Attending Unava ilable [facility], [facility] Primary Care Unava ilable POMERENE, [facility] Admitting Unava ilable PROVIDER, UNKNOWN Consulting Unavailable SP RUST Referring Unavailable ELEANOR LAZARO Attending Unavailable NO PRIMARY CAREMD Primary Care Unavailable ELEANOR LAZARO Attending Unavailable LORY LOAIZA Referring Unavailabl e NO PRIMARY CARE, Primary Care Unavailable NO PRIMARY CARE, Primary Care Unavailable BELKYS TMEPLE Attending Unavailable CIPRIANO GOMEZ Referring Unavailable NO PRIMARY MD CARLEEN Primary Care Unavailable LORY LOAIZA Referring Unavailabl e CIPRIANO GOMEZ Attending Unavailable NO PRIMARY CAREMD Primary Care Unavailable BELKYS TEMPLE Attending Unavailable LORY LOAIZA Referring Nilam JACKSON PRIMARY CAREMD Primary Care Unavailable ELEANOR LAZARO Attending Unavailable LORY LOAIZA Referring UnavailSP Stone Referring Unavailable NO PRIMARY CAREMD Primary Care Unavailable BELKYS TEMPLE Attending Unavailable Medications Completed/Discontinued Medications Medication Drug Class(es) Dates Sig (Normalized) Sig (Original) metoclopramide 10 mg oral tablet (6 sources) Dopamine-2 Receptor Antagonist Start: 06-27-2017 take 1 tablet by mouth four times daily as needed REGLAN 10 MG TABS One tablet by mouth four times daily as needed METOCLOPRAMIDE HCL [id number] Lory Loaiza MD ondansetron 4 mg oral tablet (6 sources) Serotonin-3 Receptor Antagonist Start: 06-27-2017 ZOFRAN 4 MG TABS ONDANSETRON HCL [id number] Lory Loaiza MD VIT-FE FUMARATE-FA (6 sources) Start: 06-27-2017 VITAMINS 28-0.8 MG TABS VIT-FE FUMARATE-FA [id number] Lory Loaiza MD Problems Active Problems Problem Classification Problem Date Documented Da te Episodic/Chronic Anxiety disorders (2 sources) Anxiety disorder, unspecified; Translations: [Anxiety disorder, unspecified] Onset: 10-12-2021 Chronic Other nutritional; endocrine; and metabolic disorders (1 source) Morbid (severe) obesity due to excess calories; Translations: [Morbid (severe) obesity due to excess calories] Onset: 10-12-2021 Chronic Other screening for suspected conditions (not mental disorders or infectious disease) (1 source) Encounter for screening for lipoid disorders; Translations: [Encounter for screening for lipoid disorders] Onset: 10-12-2021 Episodic Unclassified (6 sources) 16 weeks gestation of ; Translations: [16 weeks gestation of ] Onset: 06-27-2017 08-22-2017 Unclassified (1 source) Unknown / UNK(Unknown) Onset: 09-30-2016 Past or Other Problems Problem Classification Problem Date Documented Da te Episodic/Chronic Diabetes or abnormal glucose tolerance complicating ; childbirth; or the puerperium (6 sources) Abnormal glucose tolerance test during - baby not yet delivered; Translations: [Abnormal glucose complicating ] Onset: 07-26-2017 07-26-2017 Episodic Normal and/or delivery (20 sources) Gestation period, 12 weeks; Translations: [Normal ] Onset: 06-27-2017 07-25-2017 Episodic Other circulatory disease (6 sources) H/O: hypertension; Translations: [Personal history of other diseases of the circulatory system] Onset: 06-27-2017 06-27-2017 Episodic Results Test Name Value Interpretation Reference Range Facil ity Vital Signs Date Time Vital Sign Value Performing Clinician [place] 08-22-2017 15:21-0500 BMI (Body Mass Index) 40.02 kg/m2 Lory Loaiza MD [facility] 08-22-2017 15:21-0500 Body Temperature 97.9 [degF] Lory Loaiza MD [facility] 08-22-2017 15:21-0500 BP Diastolic 77 mm[Hg] Lory Loaiza MD [facility] 08-22-2017 15:21-0500 BP Systolic 120 mm[Hg] Lory Loaiza MD [facility] 08-22-2017 15:21-0500 Pulse (Heart Rate) 94 /min Lory Loaiza MD [facility] 08-22-2017 15:21-0500 Respiratory Rate 16 /min Lory Loaiza MD [facility] 08-22-2017 15:21-0500 Weight 112.49 kg Lory Loaiza MD [facility] 07-25-2017 16:03-0400 Height 167.64 cm Lory Loaiza MD [facility] 06-27-2017 14:52-0400 Body Temperature 96.4 [degF] Lory Loaiza MD [facility] 06-27-2017 14:52-0400 Height 167.64 cm Lory Loaiza MD [facility] 06-27-2017 14:52-0400 Weight 118.21 kg Lory Loaiza MD [facility] Encounters Encounter Date Encounter Type Care Provider Facility Start: 10-23-2023 End: 10-23-2023 [facility] ELEANOR Santana [facility] Start: 10-17-2023 End: 10-17-2023 ambulatory [facility] Start: 10-10-2023 End: 10-10-2023 ambulatory [facility] Start: 09-25-2023 End: 09-25-2023 ambulatory NO PRIMARY CARE [facility] Start: 08-28-2023 End: 08-28-2023 ambulatory NO PRIMARY CARE [facility] Start: 07-31-2023 End: 07-31-2023 ambulatory MD NO PRIMARY CARE [facility] Start: 06-29-2023 End: 06-29-2023 ambulatory MD NO PRIMARY CARE [facility] Start: 10-12-2021 End: 10-12-2021 ambulatory GEOVANNI CARDONA [facility] Start: 07-02-2021 End: 07-02-2021 ambulatory BRIANA CASTANEDA [facility] Start: 04-28-2021 End: 04-28-2021 ambulatory NICO MOREJON [facility] Start: 09-30-2016 End: 08-17-2017 Ambulatory YOEL VERDUZCO [facility] Procedures Date Procedure Procedure Detail Performing Clinician Start: 08-22-2017 End: 08-22-2017 *CBC with Differential Lory tate MD Work Phone: Start: 08-22-2017 End: 08-22-2017 *HEBSAG - Hep B Surface Antigen 6510 Lory Loaiza MD Work Phone: Start: 08-22-2017 End: 08-22-2017 *HIV antibody Lory Loaiza MD Work Phone: Start: 08-22-2017 End: 08-22-2017 *TS Type and Screen Lory Loaiza MD Work Phone: Start: 08-22-2017 End: 08-22-2017 Reagin Ab [Presence] in Serum by RPR Lory Loaiza MD Work Phone: Start: 08-22-2017 End: 08-22-2017 Routine OB Visit (Global) Lory lockhart MD Work Phone: Start: 08-22-2017 End: 08-22-2017 Rubella virus Ab [Units/volume] in Serum Lory Loaiza MD Work Phone: Start: 08-22-2017 End: 08-22-2017 Us preg uterus after 1st trimest 10/16 gestation Lory Loaiza MD Work Phone: Start: 07-26-2017 End: 07-28-2017 *GESTGTT Gestational GRR 3Hr 100 gm Lory Loaiza MD Work Phone: Start: 07-25-2017 End: 07-25-2017 Routine OB Visit (Global) Lory lockhart MD Work Phone: Start: 06-27-2017 End: 07-26-2017 *CBC with Differential Lory tate MD Work Phone: Start: 06-27-2017 End: 07-26-2017 *CMP Complete Metabolic Panel Lory Loaiza MD Work Phone: Start: 06-27-2017 End: 07-26-2017 *HEBSAG - Hep B Surface Antigen 6510 Loyr Loaiza MD Work Phone: Start: 06-27-2017 End: 07-26-2017 *HIV antibody Lory Loaiza MD Work Phone: Start: 06-27-2017 End: 07-26-2017 *MISC - Miscellaneous Lab Test #1 Lory Loaiza MD Work Phone: Start: 06-27-2017 End: 07-26-2017 *TS Type and Screen Lory Loaiza MD Work Phone: Start: 06-27-2017 End: 07-26-2017 Bacteria identified in Urine by Culture Lory Loaiza MD Work Phone: Start: 06-27-2017 End: 07-26-2017 Protein/Creatinine [Mass Ratio] in Urine Lory Loaiza MD Work Phone: Start: 06-27-2017 End: 07-26-2017 Reagin Ab [Presence] in Serum by RPR Lory Loaiza MD Work Phone: Start: 06-27-2017 End: 06-27-2017 Routine OB Visit (Global) Lory lockhart MD Work Phone: Start: 06-27-2017 End: 07-26-2017 Rubella virus Ab [Units/volume] in Serum Lory Loaiza MD Work Phone: Plan of Treatment Date Care Activity Detail Author Start: 09-19-2017 End: 09-19-2017 Appointment Appointment [facility] Start: 08-22-2017 End: 08-22-2017 Appointment Appointment [facility] Start: 08-22-2017 End: 08-22-2017 *CBC with Differential *CBC with Differential [facility] Start: 08-22-2017 End: 08-22-2017 *HEBSAG - Hep B Surface Antigen 6510 *HEBSAG - Hep B Surface Antigen 6510 [facility] Start: 08-22-2017 End: 08-22-2017 *HIV antibody *HIV antibody [facility] Start: 08-22-2017 End: 08-22-2017 *TS Type and Screen *TS Type and Screen [facility] Start: 08-22-2017 End: 08-22-2017 Reagin antibody presence *RPR [facility] Start: 08-22-2017 End: 08-22-2017 Rubella virus Ab [Units/volume] in Serum *Rubella Screen [facility] Start: 08-22-2017 End: 08-22-2017 Us preg uterus after 1st trimest 1/ gestation US OB, >14 weeks [facility] Start: 07-26-2017 End: 07-28-2017 *GESTGTT Gestational GRR 3Hr 100 gm *GESTGTT Gestational GRR 3Hr 100 gm [facility] Start: 06-27-2017 End: 07-26-2017 *CBC with Differential *CBC with Differential [facility] Start: 06-27-2017 End: 07-26-2017 *CMP Complete Metabolic Panel *CMP Complete Metabolic Panel [facility] Start: 06-27-2017 End: 06-27-2017 *GC/Chlamydia *GC/Chlamydia [facility] Start: 06-27-2017 End: 07-26-2017 *HEBSAG - Hep B Surface Antigen 6510 *HEBSAG - Hep B Surface Antigen 6510 [facility] Start: 06-27-2017 End: 07-26-2017 *HIV antibody *HIV antibody [facility] Start: 06-27-2017 End: 07-26-2017 *MISC - Miscellaneous Lab Test #1 *MISC - Miscellaneous Lab Test #1 [facility] Start: 06-27-2017 End: 07-26-2017 *TS Type and Screen *TS Type and Screen [facility] Start: 06-27-2017 End: 07-25-2017 GTT (glucose after 1hr PO glucose) *Glucose, Post Glucose Dose [facility] Start: 06-27-2017 End: 07-26-2017 Protein/Creatinine [Mass Ratio] in Urine *PROCRER Protein/Creat Ratio, Urine [facility] Start: 06-27-2017 End: 07-26-2017 Reagin antibody presence *RPR [facility] Start: 06-27-2017 End: 07-26-2017 Rubella virus Ab [Units/volume] in Serum *Rubella Screen [facility] Start: 06-27-2017 End: 07-26-2017 Urine culture, bacteria *CUUR - Culture, Urine ([place] Count) [facility] Payers Date Payer Category Payer Unknown [id number] 1995 Unknown [id number] 1995 Unknown [id number] 2.16.84 [id number] 1995 Unknown [id number] 2.16 [id number] 1995 Unknown [id number] 1995 Unknown [id number] 2.16. [id number] 1995 Unknown [id number] 2.16. [id number] 1995 Unknown [id number] 2.16. [id number] 1995 Unknown [id number] 2.16. [id number] 1995 Unknown [id number] 2.16. [id number] Unknown [id number] Summary Purpose Family History No Family History Records FoundNo Family History Records FoundNo Family History Records FoundNo Family History Records Found Advance Directives No Advanced Directives Records FoundNo Advanced Directives Records FoundNo Advanced Directives Records FoundNo Advanced Directives Records Found Additional Source Comments INFORMATION SOURCE (unrecogn ized section and content) DATE CREATED AUTHOR AUTHOR'S ORGANIZ ATION 04/30/2021 [facility] DATE CREATED AUTHOR AUTHOR'S ORGANIZ ATION 10/12/2021 [facility] DATE CREATED AUTHOR AUTHOR'S ORGANIZ ATION 10/24/2023 [facility] FOR RECORDS PERTAINING TO PATIENTS WHO ARE OR HAVE BEEN ENROLLED IN A CHEMICAL DEPENDENCY/SUBSTANCEABUSE PROGRAM, SOME INFORMATION MAY BE OMITTED. This clinical summary was aggregated from multiple sources. Caution should be exercised in using it in the provision of clinical care. This summary normalizes information from multiple sources, and as a consequence, information in this document may materially change the coding, format and clinical context of patient data. In addition, data may be omitted in some cases. CLINICAL DECISIONS SHOULD BE BASED ON THE PRIMARY CLINICAL RECORDS. [facility] [employer] provides no warranty or guarantee of the accuracy or completeness of information in this document.
== END | disposition home or self-care (01) ==
LOC: LABSPEC 11:23
PROVIDERS: PCP Nurse Practitioner Family; Referring Provider Obstetrics & Gynecology; Visit Provider Obstetrics & Gynecology
DX: O09.90 Supervision of high risk pregnancy, unspecified, unspecified trimester (principal); Z3A.00 Weeks of gestation of pregnancy not specified
CPT/HCPCS: 87081

== ENCOUNTER 2023-11-06 11:15 | Inpatient (IN) | payer OTHER, SELFPAY ==
[2023-11-06] VITALS (23 sets, daily range): BP systolic 127–146; BP diastolic 76–102; PULSE 67–103; TEMP 35.9–37.1; O2SAT 80–99; BMI 41.8
--- NOTE | 2023-11-06 | PLAC_PTH ---
PATHOLOGY RESULTS PATIENT: JAY SMITH LOC: WP U#:[id number] AGE/SX: 28/F ROOM: WP006 RE11/06/[address]: Dr. Crystal Tyler DO : 1995 BED: 1 DIS: 11/08/2023 SPEC #: [id number] RECD: 11/07/23 05:30 STATUS: JAYLIN BEN #: [id number] TEGAN: 11/06/23 00:[address]: Crystal Tyler DEPT: SURGICAL PATHOLOGY RECD BY: Suleman Madison ENTERED: 11/07/23 08:11 SP TYPE: PLACENTA STORMHR DR: KATHRINE Ortega Tissues: Placenta, NOS Fallopian tube Procedures: Surgery Specimen Level II Surgery Specimen Level V HEADER OPERATION: Primary section, tubal ligation PRE-OP DIAGNOSIS: Sterilization TISSUE SUBMITTED: A - Placenta, B - Fallopian tubes, suture in right tube MICROSCOPIC DIAGNOSIS A. Mac placenta (502 gm): Umbilical cord - trivascular with no evidence of inflammation. Placental membranes - minimal acute and chronic inflammation. Placental disc - intravillous congestion and focal edema, mild Neida-Gaetano change. B. Right and left fallopian tubes, bilateral salpingectomies: Right fallopian tube - complete cross-section of fallopian tube with no pathologic change. Left fallopian tube - complete cross-section of fallopian tube with no pathologic change. AM:lisa 11/09/2023 MICROSCOPIC DESCRIPTION Slides are reviewed. GROSS DESCRIPTION A - SPECIMEN: PLACENTA / CLINICAL INFORMATION: A. Weight: 3.3 kg B. Gestational Age: 37 weeks C. Sex: Male PLACENTAL WEIGHT (POST FIXATION): 502 gm PLACENTAL DIMENSIONS: 18.0 x 18.0 x 3.0 cm PLACENTAL SHAPE: Usual ovoid PLACENTAL WEIGHT FOR GESTATIONAL AGE: Within 10-99th percentile MEMBRANES - Present A. Insertion: Marginal B. Site of rupture from edge: 6.0 cm from edge of placental disc C. Color of membrane: Bean-greenish consistent with meconium staining D. Abnormalities: None UMBILICAL CORD - Present A. Color: Bean-samuels B. Insertion: Paracentral C. Length: 42.0 cm D. Diameter: 1.4 cm E. Number of vessels: Three F. Abnormalities: None PLACENTAL DISC - Present A. Color of surface: Bean-samuels B. surface abnormalities: None C. Maternal cotyledons: Intact with minimal tears. The maternal surface is partly disrupted; however, appears to be complete. D. Attached retro placental clot: No clot E. Cut surface: Dark red and spongy F. Lesions: None G. Separate clot: Absent SECTIONS SUBMITTED: 1. Membrane roll 2. Cord, maternal end 3. Cord, end 4. Placental disc, and maternal surfaces 5. Placental disc, and maternal surfaces 6. Placental disc, and maternal surfaces B - Received in fixative is one container labeled with the patient's name and designated bilateral fallopian tubes, suture in right tube. The specimen consists of bilateral fallopian tubes including fimbrial ends. The right fallopian tube measures 7.5 cm in length and 1.0 cm in diameter and the left fallopian tube measures 9.0 cm in length and 0.5 cm in diameter. Sections reveal unremarkable cut surfaces. [employer] sections are submitted in two cassettes as follows: 1 - right fallopian tube, 2 - left fallopian tube. / SJ:rg 11/07/2023 TC:5 CPT: 76061, 92180 x2
[2023-11-06] MEDS: 0.9% Saline Lock 10 ML Syringe IV (10:05)
[2023-11-06 10:21] LABS: Hematocrit 39.3 % (37-47); Hemoglobin 13.7 g/dL (12.0-15.0); Mean Corp Hgb Conc 34.9 g/dL (32-36); Mean Corpuscular Hgb 30.9 pg (27.0-32.0); Mean Corpuscular Volume 88.7 fL (81-99); Mean Platelet Vol. 10.1 fl (6.2-12.0); Platelet Count 216 K/mm3 (150-450); RBC Distribution Width CV 13.2 % (11.6-14.6); RBC Distribution Width SD 42.5 fl (35.1-43.9); Red Blood Count 4.43 M/mm3 (4.2-5.4); White Blood Count 6.9 K/mm3 (4.4-11.0)
[2023-11-06 10:45] LABS: ALB/GLOB Ratio 0.8 RATIO (0.9-2.4); AST(SGOT) 15 U/L (15-37); Alanine Aminotransfer ALT/SGPT 18 U/L (13-56); Albumin, Serum 2.8 g/dL (3.2-5.0); Alkaline Phosphatase 106 U/L (45-117); Anion Gap 5 (5-15); BUN 7 mg/dL (7-18); BUN/Creat Ratio 13.6 RATIO (10-20); Calcium,Total 8.7 mg/dL (8.5-10.1); Chloride 109 mmol/L (98-107); Creatinine, Serum 0.52 mg/dL (0.55-1.02); EST Glomerular Filtration Rate 150 mL/min (>60); Est Glom Filt Rate - Afr Amer 182 mL/min (>60); Estimated Creatinine Clearance 209.87 ml/min; Globulin 3.5 g/dL (2.2-4.2); Glucose 89 mg/dL (74-106); LDH 206 U/L (84-246); Protein, Total 6.3 g/dL (6.4-8.2); Sodium Level 137 mmol/L (136-145); Uric Acid 4.1 mg/dL (2.6-6.0)
[2023-11-06 11:14] LABS: Protein, Urine (Random) 63.1 mg/dL (<11.9); Protein:Creat Ratio 399 mg/g CRE (0-200)
[2023-11-06 12:12] LABS: Bedside Glucose 73 mg/dL (74-106)
[2023-11-06] MEDS: miSOPROStol 25 MCG TABLET VAGINAL (16:13)
--- NOTE | 2023-11-06 16:49 | HP.PCM.OB_ITS ---
HPI - General General Date of Admission: 11/06/23 HPI Narrative JAY SMITH, is a 28 F who presents at 37 weeks with mild headache. elevated proteinuria. with history of CHTN, pre-eclampsia, gestational diabetes. Maternal Data Information ANGELA Calculator Estimated Delivery Date Method Current WG Current Estimate 11/27/23 LMP (Uncertain) 37w 0d PFSH PFSH Medical History History of pre-eclampsia in prior , currently Myopia of both eyes Home Medications fluoxetine 20 mg capsule (Prozac) 20 mg PO DAILY #30 caps 03/23/23 [Rx Last Taken 11/06/23] famotidine 10 mg tablet 10 mg PO DAILY 04/25/23 [History Last Taken 11/06/23] vitamins no.163-iron bis-gly 20 mg-folate no.10 1 mg tablet (PNV Tabs 20-1) 1 tab PO DAILY 04/25/23 [History Last Taken Unknown] blood sugar diagnostic (Blood Glucose Test strips) #120 ea 05/10/23 [Rx Last Taken Unknown] blood-glucose meter #1 ea 05/10/23 [Rx Last Taken Unknown] lancets #200 ea 05/10/23 [Rx Last Taken Unknown] insulin NPH isoph U-100 human 100 unit/mL subcutaneous suspension (Novolin N NPH U-100 Insulin isophane) 10 unit subcut QPM 06/26/23 [History Last Taken 11/06/23] aspirin 81 mg tablet,delayed release (Adult Aspirin Regimen) 81 mg PO DAILY 08/21/23 [History Last Taken 11/05/23] ondansetron 4 mg disintegrating tablet See Rx Instructions .Route .COMPLEX #60 tabs 11/02/23 [Rx Last Taken Unknown] Allergy/AdvReac Type Severity Reaction Status Date / Time No Known Allergies Allergy Verified 11/06/23 10:05 Family History Mother Hypertension Surgical History Hx laparoscopic cholecystectomy Leonard teeth extracted Social History adopted: No household members: spouse, children and other details: Mother number of children: 2 current occupational status: employed current occupation: [employer] current occupational exposures/hazards: No pets and animals: Yes pets and animals: dog(s) history of recent travel: Yes ([place]) out of state: Yes out of country: No sexually active: Yes Smoking Status: Never smoker second hand exposure: No alcohol intake: never substance use type: does not use well-balanced diet: daily or most days caffeine: Yes Type: tea Number of servings: 1 eating out: 1-3 times/week during the past year weight has: increased > 10 lbs what type of physical activity do you participate in: walking frequency: 3-4 times per week duration: 15-30 minutes/day linnea/mosque: None seatbelt use: always do you feel safe at home: Yes additional social history: spouse Obed- [place] History 3 Elective abortions Hx Para 2 Spontaneous abortions Hx # Term Pregnancies Ectopic pregnancies Hx # Pregnancies Multiple births # of living children 2 Past Pregnancies Del. Date Name GA/Weeks Outcome Route Bth Weight Infant Gen Labor Lgth Anesthesia Del Locatn Provider FOB Unknown 09/25/16 Guanako 35 5lb 15 oz [facility] 02/05/18 Dann 40 live - full term Male [facility] Delivery Date: Last Updated by: Lory Loaiza MD preeclampsia Visit Details Expected Delivery Route/Plan Labor Preferences- CB/BF classes: no labor support person: Obed labor intervention preferences: [] pain management options preferred: epidural cut cord/dad catch: yes : no PP control planned: discussed Wants BS discussed possible routes of delivery and associated risks: [] special requests: [] Plans Covid status: discussed Flu vaccine: declines Tdap vaccine: given 09/04/23 Rhogam: NA LARC form signed: Yes Problem list reviewed and updated with the most current plan of care details and appropriate orders placed. Relevant counseling for the gestational age provided. Continue routine care and follow up unless otherwise noted in visit notes/problem list details OB Flowsheet Initial Weight: Not Recorded Date -?-?-?-?-?-?-?-?-?-?-?-?- EGA Weight BP Urine Prot -?-?-?-?-?--?-?-?-?-?-?-?- Glucose FHR FuHt Pres Dilation -?-?-?-?-?-?-?-?-?-?-?--?- Effaced St Visit Note 05/02/23 -?-?-?-?-?-?-?-?-?-?-?-?- 10w 1d 292 lb 8 oz 120/84 -?-?-?-?-?-?-?-?-?-?-?-?- 160 -?-?-?-?-?-?-?-?-?-?-?-?- SM- was on losar pereira at time of conception- stopped it at 5 weeks. formal ultrasound ordered to confirm viability and dating 05/29/23 -?-?-?-?-?-?-?-?-?-?-?-?- 14w 0d 285 lb 2 oz 108/74 Nega tive -?-?-?-?-?-?-?-?-?-?-?-?- Negative 145 -?-?-?-?-?-?-?-?-?-?-?-?- KW- no vb/crampi ng. Reviewed BS. Fasting boarder line/elevated for most FBS - referral to [facility] started. anatomy US ordered. 06/26/23 -?-?-?-?-?-?-?-?-?-?-?-?- 18w 0d 276 lb 6 oz 130/78 Nega tive -?-?-?-?-?-?-?-?-?-?-?-?- Negative 138 -?-?-?-?-?-?-?-?-?-?-?-?- LC- started on i nsulin 10u novolin with now good fastings and pp. MFM anatomy reordered. 07/24/23 -?-?-?-?-?-?-?-?-?-?-?-?- 22w 0d 273 lb 107/76 -?-?-?-?-?-?-?-?-?-?-?-?- 150 22 -?-?-?-?-?-?-?-?-?-?-?-?- KW-no vb/lof/ctx . good fm. dull ache in lower back and abdomen, unrelieved with Tylenol. unable to sleep last night from pain. N/V this am. Upon palpation, severe RLQ pain. To [facility] for evaluation of possible appendicitis. 08/21/23 -?-?-?-?-?-?-?-?-?-?-?-?- 26w 0d 269 lb 102/70 1+ -?-?-?-?-?-?-?-?-?-?-?-?- Negative 140 26 -?-?-?-?-?-?-?-?-?-?-?-?- LC- no vb/ctx/lo f. good fm. pt with + 2 kidney stones LC- no vb/ctx/lof. good fm. pt with + 2 kidney stones. glucose well controlled. 09/04/23 -?-?-?-?-?-?-?-?-?-?-?-?- 28w 0d 265 lb 116/82 Negative -?-?-?-?-?-?-?-?-?-?-?-?- Negative 143 29 -?-?-?-?-?-?-?-?-?-?-?-?- MH-No Vb, LOF. G ood FM. Glucose well controlled. Reporting to Dr Clark. tdap, [facility]. 09/18/23 -?-?-?-?-?-?-?-?-?-?-?-?- 30w 0d 263 lb 8 oz 121/81 Nega tive -?-?-?-?-?-?-?-?-?-?-?-?- Negative 138 30.5 -?-?-?-?-?-?-?-?-?-?-?-?- LC- no vb/ctx/lo f. good fm. glucose controlled. 12u insulin at night. planning on stopping work around 38 weeks. 10/02/23 -?-?-?-?-?-?-?-?-?-?-?-?- 32w 0d 262 lb 8 oz 123/84 Nega tive -?-?-?-?-?-?-?-?-?-?-?-?- Negative 130 -?-?-?-?-?-?-?-?-?-?-?-?- JV- stable gluco se on same dose of insulin since beginning of . NST reactive. needs scheduled twice a week unless has bpp with mfm. 10/06/23 -?-?-?-?-?-?-?-?-?-?-?-?- 32w 4d 261 lb 4 oz 122/84 Nega tive -?-?-?-?-?-?-?-?-?-?-?-?- Negative 140 -?-?-?-?-?-?-?-?--?-?-?-?- JV- non-reactive nst. pt sent for bpp and bpp results were 05/23. rto in 1 week. 10/11/23 -?-?-?-?-?-?-?-?-?-?-?-?- 33w 2d 262 lb 118/72 Trace -?-?-?-?-?-?-?-?-?-?-?-?- Negative 140 -?-?-?-?-?-?-?-?-?-?-?-?- MH-NST only reac tive. Stable glucose readings 10/18/23 -?-?-?-?-?-?-?-?-?-?-?-?- 34w 2d 260 lb 6 oz 118/81 Nega tive -?-?-?-?-?-?-?-?-?-?-?-?- Negative -?-?-?-?-?-?-?-?-?-?-?-?- LC- no vb/ctx/lo f. growth scan to be obtained in 2 weeks. modes of deliveries reviewed. reactive NST. glucose stable. 10/25/23 -?-?-?-?-?-?-?-?-?-?-?-?- 35w 2d 261 lb 127/85 Negative -?-?-?-?-?-?-?-?-?-?-?-?- Negative 130 38 Cephalic 0 -?-?-?-?-?-?-?-?-?-?-?-?- JV- no lof vagin al bleeding, or dec fm. nst reactive. cx not dilated but having contractions. GBS collected. pland 39 week delivery 11/01/23 -?-?-?-?-?-?-?-?-?-?-?-?- 36w 2d 260 lb 8 oz 130/85 Nega tive -?-?-?-?-?-?-?-?-?-?-?-?- Negative 150 -?-?-?-?-?-?-?-?-?-?-?-?- JV- no lof, vagi nal bleeding, or dec fm. nst reactive. glucose levels normal. bpp monday normal. 11/06/23 -?-?-?-?-?-?-?-?-?-?-?-?- 37w 0d 259 lb 8 oz 133/87 Trac e -?-?-?-?-?-?-?-?-?-?-?-?- Negative 140 -?-?-?-?-?-?-?-?-?-?-?-?- JV- pt having di astolics in the 100's at home, trace protein, and now a headache for 2 days. bp normal range, however nst shows minimal variability. sending to L&D for [facility] labs, probable induction of labor. ROS Cardiovascular Cardiovascular: Denies abdominal pain, chest pain, diaphoresis or dyspnea Respiratory/Chest Respiratory/Chest: Denies change in mental status, chest congestion, chest tightness, cough, shortness of breath at rest, shortness of breath with exertion, breast mass, breast pain, breast skin changes, breast swelling, change in breast shape or nipple discharge Genitourinary Genitourinary: Reports change in urinary stream Musculoskeletal Musculoskeletal: Reports none Integumentary Integumentary: Reports none Neurologic Neurologic: Reports none Psychiatric Psychiatric: Reports none Endocrine Endocrinology: Reports none Hematologic/Lymphatic Hematologic/Lymphatic: Reports none Allergic/Immunologic Allergic/Immunologic: Reports none Vital Signs Vital Signs Vital Signs: 11/06/23 09:58 11/06/23 09:58 11/06/23 09:59 Temperature Temperature Source Pulse Rate 78 Blood Pressure 140/102 H BP Systolic 140 BP Diastolic 102 Pulse Ox 80 11/06/23 10:00 11/06/23 10:00 11/06/23 10:00 Temperature Temperature Source Temporal Pulse Rate 82 Blood Pressure BP Systolic BP Diastolic Pulse Ox 97 11/06/23 10:00 11/06/23 10:13 11/06/23 10:13 Temperature 97.6 F L Temperature Source Pulse Rate 77 Blood Pressure 133/87 H BP Systolic 133 BP Diastolic 87 Pulse Ox 11/06/23 10:28 11/06/23 10:28 11/06/23 10:30 Temperature Temperature Source Pulse Rate 84 Blood Pressure 127/84 H 128/85 H BP Systolic 127 128 BP Diastolic 84 85 Pulse Ox 11/06/23 10:30 11/06/23 10:43 11/06/23 10:43 Temperature Temperature Source Pulse Rate 78 87 Blood Pressure 128/89 H BP Systolic 128 BP Diastolic 89 Pulse Ox 11/06/23 10:59 11/06/23 10:59 11/06/23 11:14 Temperature Temperature Source Pulse Rate 82 Blood Pressure 127/85 H 129/87 H BP Systolic 127 129 BP Diastolic 85 87 Pulse Ox 11/06/23 11:14 11/06/23 16:19 11/06/23 16:19 Temperature Temperature Source Pulse Rate 74 81 Blood Pressure 142/91 H BP Systolic 142 BP Diastolic 91 Pulse Ox 11/06/23 16:19 11/06/23 16:19 Temperature Temperature Source Pulse Rate 92 Blood Pressure BP Systolic BP Diastolic Pulse Ox 97 Weight Weight: 258 lb 12.8 oz Body Mass Index (BMI) 41.8 Physical Exam Const alert, oriented x3 and no apparent distress General Appearance: cooperative, comfortable and well kempt Orientation / Consciousness: awake and oriented to person Exam Limitations: no limitations HEENT normocephalic Neck full ROM Chest inspection of chest normal Resp normal respiratory effort, normal air movement and no retractions Effort and Inspection: able to speak in complete sentences and symmetric chest movement Cardio regular rate Peripheral Pulses: pulses 2+ throughout GI normal to inspection, nondistended, normoactive bowel sounds Inspection: gravid no CVA tenderness and appearance of the vagina normal External Female Exam: normal appearance of the urethra; Negative for external lesion OB / External & Speculum: external exam normal Manual OB Exam: estimated gestational size appropriate and presentation cephalic Uterus Palpation: Negative for uterus tender Extremity normal to inspection Skin no rashes or lesions noted Neuro deep tendon reflexes 2+ bilaterally and gait normal Motor Exam: strength 5/5 throughout and clonus absent Psych Activity / Motor Behavior: appropriate eye contact Speech: normal speech Labs Labs Labs: Blood Type O POSITIVE Antibody Screen NEGATIVE Hct 39.3 % (37-47) Hgb 13.7 g/dL (12.0-15.0) Obstetrics Ultrasound Syphilis Total Ab Non-reactive Rubella IgG Antibody Reactive (Nonreactive) Hep Bs Antigen Non-Reactive (Nonreactive) Hepatitis C Antibody Non-Reactive (Nonreactive) Chlamydia DNA (BONNIE) Negative (Negative) N.gonorrhoeae DNA (BONNIE) Negative (Negative) HIV 1&2 Antibody Non-Reactive (Nonreactive) Glucose 1 Hr 50 gm 198 mg/dL (70-140) H Gest Glucose Tolerance MG/DL Group B Strep DNA Negative (Negative) Rhogam given: No Assessment & Plan (1) Pre-eclampsia added to pre-existing hypertension: COMMENT: IOL at 37 weeks (2) Diabetes mellitus affecting : QUALIFIERS: Trimester: third trimester Qualified Code(s): O24.913 - Unspecified diabetes mellitus in , third trimester COMMENT: Failed 1hr GTT at NOB. 10U novolin-N , increased to 12u. 32 weeks nst 2xweekly, growths q4 weeks-76% at 27 weeks deliver 39 PLAN: glucose per protocol. glucose 73- hold insulin. call if >120 (3) Contraception management: QUALIFIERS: Contraceptive encounter type: other general counseling and advice Qualified Code(s): Z30.09 - Encounter for other general counseling and advice on contraception COMMENT: Yazmin dye (4) Hypertension affecting : QUALIFIERS: Trimester: second trimester Qualified Code(s): O16.2 - Unspecified maternal hypertension, second trimester COMMENT: med in past, ekg ordered, baseline labs nl. (5) Obesity affecting : QUALIFIERS: Obesity type affecting : unspecified obesity Trimester: third trimester Qualified Code(s): O99.213 - Obesity complicating , third trimester COMMENT: 1 TM GCT recommend healthy weight gain (6) Supervision of high-risk : QUALIFIERS: Trimester: third trimester Qualified Code(s): O09.93 - Supervision of high risk , unspecified, third trimester COMMENT: , ANGELA 11/27/23? PC GuanakoAmeliaon Obed desires PP tubal (7) : QUALIFIERS: Weeks of gestation: 37 weeks Qualified Code(s): Z3A.37 - 37 weeks gestation of COMMENT: Neg GBS. discussed NIPT & carrier testing- normal echo (8) Depression with anxiety: COMMENT: paxil/PCP. didn't tolerate zoloft. Stable PLAN: Plan IOL with cytotec vertex co-management with JV for diabetes, mild pre-eclampsia. reviewed and agrees with plan.
[2023-11-06 17:13] LABS: Bedside Glucose 85 mg/dL (74-106)
[2023-11-06] MEDS: CHLORHEXIDINE GLUC 2% CLOTH 1 EACH TOWELETTE TOPICAL (18:00)
[2023-11-06] MEDS: 0.9% Normal Saline Single 100 ML IV.SOLN. INTRA-UTER (18:20)
[2023-11-06 18:27] LABS: Syphilis Antibodies Non-reactive
--- NOTE | 2023-11-06 18:31 | PN_ITS ---
Progress Note pt is now /-3 per nurse. she consents to a meehan bulb current tracing: FHT: Moderate variability reactive no decelerations category I tracing [place]: irregular Contractions meehan inserted in cx and inflated to 50 cc she tolerated this well A/P: GDM on insulin- eat now, give pm insulin then start pitocin bp's are stable
[2023-11-06] MEDS: Oxytocin 15 Units/NS 250ml 15 UNITS/250 ML IV.SOLN 2 UNITS IV (20:49)
[2023-11-06] MEDS: Lactated Ringers 1,000 ML 50 ML IV (20:49)
[2023-11-06 21:10] LABS: Bedside Glucose 78 mg/dL (74-106)
--- NOTE | 2023-11-06 21:28 | NURSING ---
This RN informed provider that patients most recent blood sugar was 78 and patient is scheduled 12units of insulin daily at 2100. Would you like me to hold the insulin tonight? And would you also like to continue this insulin order daily? Provider states to hold insulin tonight and to continue blood sugar checks every 4 hours and when in active labor check blood sugars per protocol. If needed we can give regular insulin if blood sugar is out of parameters per protocol, but we will reevaluate the need for the nightly insulin tomorrow. Medication not given.
[2023-11-06] MEDS: LACTATED RINGERS 500 ML 999 ML IV (22:57)
[2023-11-06] MEDS: fentaNYL-bupivacaine (epidural) 100 ML BAG EPIDURAL (23:57)
[2023-11-07] VITALS (37 sets, daily range): BP systolic 104–146; BP diastolic 66–93; PULSE 59–106; RESP 16–21; TEMP 35.7–36.7; O2SAT 93–100
[2023-11-07] MEDS: Ondansetron 4 MG/2 ML Vial IV (00:58)
[2023-11-07] MEDS: LACTATED RINGERS 500 ML 999 ML IV (01:12)
[2023-11-07 01:23] LABS: Bedside Glucose 87 mg/dL (74-106)
[2023-11-07] MEDS: Terbutaline 1 MG/ML Vial 0.25 MG SC (01:58)
[2023-11-07] MEDS: Sodium Citrate/Citric Acid 30 ML UDC PO (02:01)
[2023-11-07] MEDS: Cefazolin 2 GM in 0.9% Normal Saline (100mL Bag) 100 ML IV (02:17)
[2023-11-07] MEDS: Azithromycin 500 MG in Dextrose 5%-Water (250mL Bag) 250 ML 250 MG IV (02:25)
--- NOTE | 2023-11-07 02:53 | OP.PCM_ITS ---
Assessment & Plan (1) intolerance to labor, delivered, current hospitalization: (2) Pre-eclampsia added to pre-existing hypertension: COMMENT: IOL at 37 weeks (3) Diabetes mellitus affecting : QUALIFIERS: Trimester: third trimester Qualified Code(s): O24.913 - Unspecified diabetes mellitus in , third trimester COMMENT: Failed 1hr GTT at NOB. 10U novolin-N , increased to 12u. 32 weeks nst 2xweekly, growths q4 weeks-76% at 27 weeks deliver 39 (4) Contraception management: QUALIFIERS: Contraceptive encounter type: other general counseling and advice Qualified Code(s): Z30.09 - Encounter for other general counseling and advice on contraception COMMENT: Wants bouchra dye (5) Insulin dependent diabetes mellitus: (6) Threatened : COMMENT: losartan exposure early - formal ultrasound ordered (7) Hypertension affecting : QUALIFIERS: Trimester: second trimester Qualified Code(s): O16.2 - Unspecified maternal hypertension, second trimester COMMENT: med in past, ekg ordered, baseline labs nl. (8) Obesity affecting : QUALIFIERS: Trimester: third trimester Obesity type affecting : unspecified obesity Qualified Code(s): O99.213 - Obesity complicating , third trimester COMMENT: 1 TM GCT recommend healthy weight gain (9) History of pre-eclampsia in prior , currently : COMMENT: baseline labs ordered asa recommend (10) Supervision of high-risk : QUALIFIERS: Trimester: third trimester Qualified Code(s): O09.93 - Supervision of high risk , unspecified, third trimester COMMENT: , ANGELA 11/27/23? Dann Poe Obed desires PP tubal (11) : QUALIFIERS: Weeks of gestation: 37 weeks Qualified Code(s): Z3A.37 - 37 weeks gestation of COMMENT: Neg GBS. discussed NIPT & carrier testing- normal echo (12) Nausea and vomiting during : (13) Depression with anxiety: COMMENT: paxil/PCP. didn't tolerate zoloft. Stable Maternal Data Information ANGELA Calculator Estimated Delivery Date Method Current WG Current Estimate 11/27/23 LMP (Uncertain) 37w 1d Final ANGELA: 11/27/23 Gestational age: 37 weeks 1 day [place] Doctor Who Attended Delivery: Schiowitz,Gila Details Operative Information Date of Procedure: 11/07/23 Pre-Operative Diagnosis: 28 y/o @ 37 weeks 1 day, pre-eclampsia, gestational diabetes, intolerance to labor, desires permanent sterilization Post-Operative Diagnosis: 28 y/o @ 37 weeks 1 day, pre-eclampsia, gestational diabetes, intolerance to labor, desires permanent sterilization Classification: ZOEY 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 The heart rate resolved with minimal variability at a higher baseline for the next 15 minutes. Internal monitors were places showing persistent late decelerations then. Cx was only 4 cm dilated, thick meconium stained fluid was noted and bright red blood with IUPC placement. The IUPC was replaced but the decision was made to proceed with urgent section. Terbutaline was given and this resulted in expected tachycardia while the patient was being prepped for surgery. During this time the patient did not experience any extreme hypotension. After discussing the patient's diagnosis and treatment plan options, patient wishes to proceed with surgical management. I have discussed with the patient the risks, benefits, and alternatives of the procedure which include but are not limited to risks of anesthesia, bleeding, infection, possible damage to bowel, bladder, or surrounding vasculature which could lead to additional surgery to evaluate any complications. Patient agrees to procedure and wishes to proceed. Procedure: The patient was brought to the operating room where epidural anesthesia was found to be adequate. She was prepped and draped in the normal sterile fashion and was placed in a dorsal supine position with a leftward tilt. Pfannenstiel skin incision was made with a scalpel and carried through to the underlying layers. The fascia was nicked in the midline and extended laterally using Dodd scissors. The anterior aspect of the fascia was grasped with Cassandra clamps and the underlying rectus muscles dissected off using the Metzenbaum scissors. The inferior aspect the fascia was also grasped with Cassandra clamps and the underlying rectus muscle dissected off with the Metzenbaum scissors. The rectus muscles were in the midline. Peritoneum was entered sharply. The uterus was identified and a bladder blade was inserted into the abdomen. Bladder flap was created off the uterus using Metzenbaum scissors. A transverse incision was made with a scalpel and extended laterally manually. The 's head was grasped with the help of my budget assistant and fundal pressure the was delivered through the uterine incision without difficulty. The infant was pale and limp upon delivery. The cord was immediately clamped and cut. The was handed off to the awaiting anesthesiologist attending for assessment. Placenta was delivered manually without difficulty. The uterus was exteriorized and cleared of all clots and debris. Incision was closed with an 1-0 Vicryl suture in a running locked fashion. Second layer of 1-0 monocryl suture was used in imbricating manner to create excellent closure and hemostasis. The right tube was grasped with a Emy clamp and the underlying mesosalpinx was cauterized and cut with the ligasure device removing the entire tube and fimbriated end. The same procedure was performed on the opposite side. Both fallopian tubes were passed off for pathology analysis. The uterus was returned to the abdomen. The gutters were cleared of all clots and debris. The peritoneum was closed in a pursestring pattern using a 3-0 Vicryl suture. This muscle was reapproximated with a 3-0 Vicryl. The fascia was closed with an PDS stratafix suture. Subcutaneous tissue layer was closed using a plain gut suture. The skin was closed with a 4-0 Monocryl subcuticular stitch. The skin was also sealed with surgical glue. The patient tolerated the procedure well sponge lap and needle counts were correct at each tissue closure plane and the patient is now being brought to the recovery room in stable condition Presentation: Positive for Vertex Amniotic Membrane Rupture Type: Artificial Time of Membrane Ruptured: 013 Amniotic Fluid Description: Moderate meconium Placental Delivery Description: Expressed Placenta Disposition: [facility] Cord Vessel Description: 3 Vessels Cord Entanglement: Around neck x 1, loose Nuchal Cord Compression: Without compression Cord Gases: ABG and VBG A Gender: Male (1 minute): 6 (5 minute): 7 Delayed Cord Clamping: No Complications Risks of Surgery Discussed w/Patient: Anesthesia Risks, Need for Future C- Sections, Permanency, Failure Rate of 1 to 2%, Injury to surrounding structure(s) including bowel and bladder and Availability of other non-permanent control options Complications: none Multi Select Codes Urinary/Genital Urinary/Genital CPT Codes: 73312 Delivery [facility]
--- NOTE | 2023-11-07 03:10 | DCINST_ITS ---
Discharge Instructions Diet Discharge Diet: No restrictions Activity Discharge Activity: May Not Drive (for 2 weeks or while taking narcotic pain medications.), May Shower and May Take a Tub Bath (in 7 days.) May resume sexual activity in: 4-6 weeks Weight Bearing Status: Full weight bearing Lifting Restrictions: 20 pounds Dressing / Incision Call your doctor if your incision/area has: Continuous Slow Oozing, Sudden Increased Bleeding, Increased Pain/ Swelling, Increased Redness and Foul Smelling Discharge Call your doctor if you observe: Fever of 101 or Higher and Using more than 1 pad per hour Suture Line Care: Avoid Pulling/Pushing and Avoid Pinching/Bending Cleanse incision/area with: Soap & Water and Keep Dressing Clean & Dry Follow Up Care Please Follow Up With: rCystal Tyler DO When: Call [phone] to make an appointment for an incision check in 1-2 weeks. Test Results: Test results from this visit will be discussed in further detail at your follow- up appointment, if applicable. Discharge Plan Admission Admit Date/Time: 11/06/23 11:15 Primary Reason for Your Visit: section and tubal ligation Attending Provider: Crystal Tyler Primary Care Provider: Lindsey Dalal Discharge Orders/Prescriptions Prescriptions: New naproxen 500 mg tablet 500 mg PO BID PRN (Reason: pain) Qty: 30 0RF Continued fluoxetine [Prozac] 20 mg capsule 20 mg PO DAILY Qty: 30 12RF famotidine 10 mg tablet 10 mg PO DAILY PNV Tabs 20-1 20 mg iron- 1 mg tablet 1 tab PO DAILY Novolin N NPH U-100 Insulin 100 unit/mL suspension 10 unit subcut QPM (DME) blood[place] [facility] [place] Instructions .MEDSUPPLY Qty: 1 0RF Rx Instructions: As directed- Test fasting and 2 hours after meals (DME) Blood Glucose Test Strip See Rx Instructions .Route Qty: 120 8RF Rx Instructions: As directed-fasting and 2 HR post meals (DME) lancets Misc See Rx Instructions .MEDSUPPLY Qty: 200 8RF Rx Instructions: As directed Discontinued aspirin [Adult Aspirin Regimen] 81 mg tablet,delayed release (DR/EC) 81 mg PO DAILY ondansetron 4 mg tablet,disintegrating See Rx Instructions .ROUTE .COMPLEX Qty: 60 0RF Dose Instruction: DISSOLVE 1 TABLET IN MOUTH EVERY 4 HOURS NEEDED FOR NAUSEA AND VOMITING Rx Instructions: DISSOLVE 1 TABLET IN MOUTH EVERY 4 HOURS NEEDED FOR NAUSEA AND VOMITING Referrals / Follow Up: Lindsey Dalal TOOTH GRINDER-C [Primary Care Provider] - Disposition Disposition (needs filled in before D/C Order can be placed): Home, Self Care
[2023-11-07] MEDS: Oxytocin 15 Units/NS 250ml 15 UNITS/250 ML IV.SOLN 83 UNITS IV (03:18)
[2023-11-07] MEDS: Ketorolac 30 MG/ML Syringe IV ×4 (03:36→21:46)
[2023-11-07] MEDS: Acetaminophen 500 MG Tablet 1000 MG PO ×4 (03:39→21:45)
--- NOTE | 2023-11-07 03:44 | OP.PCM_ITS ---
Maternal Data Information ANGELA Calculator Estimated Delivery Date Method Current WG Current Estimate 11/27/23 LMP (Uncertain) 37w 1d Details Operative Information national investigative producer #1: Arabella Martinez Type of Anesthesia: Epidural Findings Description of Procedure: I was present and assisted Dr. Yang from the start of the procedure to the end. I performed retraction, suture cutting, suction, fundal pressure assistance.I also performed skin closure suturing using 4-0 Monocryl suture in a running fashion with steristrips applied excellent hemostasis noted upon full closure.The wound was dressed with silver Mepilex and the patient was brought to recovery in stable condition. see Dr. Yang's operative note for full detai ls of this procedure. 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
[2023-11-07 04:29] LABS: Bedside Glucose 140 mg/dL (74-106)
[2023-11-07] MEDS: Insulin NPH Human 100 UNITS/ML PEN SC ×2 (04:32→16:19)
[2023-11-07 05:29] LABS: Pathology Specimen OB SEE PATHOLOGY REPORT
[2023-11-07] MEDS: Lactated Ringers 1,000 ML 100 ML IV (06:23)
[2023-11-07] MEDS: FLUoxetine 20 MG Capsule PO (11:16)
[2023-11-07] MEDS: Famotidine 20 MG Tablet 10 MG PO (11:16)
[2023-11-07] MEDS: Senna/Docusate Sodium 1 Tablet PO (11:16)
[2023-11-07 11:49] LABS: Bedside Glucose 139 mg/dL (74-106)
[2023-11-07] MEDS: 0.9% Saline Lock 10 ML Syringe IV ×2 (15:38→21:46)
[2023-11-07] MEDS: Enoxaparin 40 MG/0.4 ML Syringe SC (15:38)
[2023-11-07 16:13] LABS: Bedside Glucose 125 mg/dL (74-106)
[2023-11-07 22:18] LABS: Bedside Glucose 102 mg/dL (74-106)
[2023-11-08 00:49] VITALS: BP 120/67; PULSE 60; RESP 16; TEMP 36.7; O2SAT 100
[2023-11-08] MEDS: Acetaminophen 500 MG Tablet 1000 MG PO ×2 (03:46→11:22)
[2023-11-08] MEDS: Enoxaparin 40 MG/0.4 ML Syringe SC (03:46)
[2023-11-08] MEDS: Naproxen 500 MG Tablet PO ×2 (03:46→15:13)
[2023-11-08 04:43] LABS: Hematocrit 36.3 % (37-47); Mean Corp Hgb Conc 33.1 g/dL (32-36); Mean Corpuscular Hgb 31.7 pg (27.0-32.0); Mean Corpuscular Volume 95.8 fL (81-99); Mean Platelet Vol. 11.2 fl (6.2-12.0); POSITIVE COUNT YES; RBC Distribution Width CV 13.5 % (11.6-14.6); RBC Distribution Width SD 46.7 fl (35.1-43.9); Red Blood Count 3.79 M/mm3 (4.2-5.4); White Blood Count 8.6 K/mm3 (4.4-11.0)
[2023-11-08 05:12] LABS: Scan Indicated on CBC? Y/N YES- FLAGS NOTED
[2023-11-08 07:05] LABS: Bedside Glucose 76 mg/dL (74-106)
[2023-11-08 07:49] VITALS: BP 114/76; PULSE 68; RESP 16; TEMP 36.3; O2SAT 97
--- NOTE | 2023-11-08 08:16 | PCM.DC.SUM ---
Providers Date of Admission: 11/06/23 Primary Care Physician: KATHRINE Ortega Reason For Visit: Diagnosis Discharge Diagnosis (1) intolerance to labor, delivered, current hospitalization: Status: Deleted Code(s): O77.9 - Labor and delivery complicated by stress, unspecified (2) Pre-eclampsia added to pre-existing hypertension: Status: Acute Code(s): O11.9 - Pre-existing hypertension with pre-eclampsia, unspecified trimester (3) Diabetes mellitus affecting : Status: Acute Code(s): O24.919 - Unspecified diabetes mellitus in , unspecified trimester Qualifiers: Trimester: third trimester Qualified Code(s): O24.913 - Unspecified diabetes mellitus in , third trimester (4) Contraception management: Status: Acute Code(s): Z30.9 - Encounter for contraceptive management, unspecified Qualifiers: Contraceptive encounter type: other general counseling and advice Qualified Code(s): Z30.09 - Encounter for other general counseling and advice on contraception (5) Insulin dependent diabetes mellitus: Status: Acute (6) Threatened : Status: Acute Code(s): O20.0 - Threatened (7) Hypertension affecting : Status: Acute Code(s): O16.9 - Unspecified maternal hypertension, unspecified trimester Qualifiers: Trimester: second trimester Qualified Code(s): O16.2 - Unspecified maternal hypertension, second trimester (8) Obesity affecting : Status: Acute Code(s): O99.210 - Obesity complicating , unspecified trimester Qualifiers: Trimester: third trimester Obesity type affecting : unspecified obesity Qualified Code(s): O99.213 - Obesity complicating , third trimester (9) History of pre-eclampsia in prior , currently : Status: Acute Code(s): O09.299 - Supervision of with other poor reproductive or obstetric history, unspecified trimester (10) Supervision of high-risk : Status: Acute Code(s): O09.90 - Supervision of high risk , unspecified, unspecified trimester Qualifiers: Trimester: third trimester Qualified Code(s): O09.93 - Supervision of high risk , unspecified, third trimester (11) : Status: Acute Code(s): Z34.90 - Encounter for supervision of normal , unspecified, unspecified trimester Qualifiers: Weeks of gestation: 37 weeks Qualified Code(s): Z3A.37 - 37 weeks gestation of (12) Nausea and vomiting during : Status: Acute Code(s): O21.9 - Vomiting of , unspecified (13) Depression with anxiety: Status: Acute Code(s): F41.8 - Other specified anxiety disorders Medications at Discharge Home Medications fluoxetine 20 mg capsule (Prozac) 20 mg PO DAILY #30 caps 03/23/23 famotidine 10 mg tablet 10 mg PO DAILY 04/25/23 vitamins no.163-iron bis-gly 20 mg-folate no.10 1 mg tablet (PNV Tabs 20-1) 1 tab PO DAILY 04/25/23 blood sugar diagnostic (Blood Glucose Test strips) #120 ea 05/10/23 blood-glucose meter #1 ea 05/10/23 lancets #200 ea 05/10/23 insulin NPH isoph U-100 human 100 unit/mL subcutaneous suspension (Novolin N NPH U-100 Insulin isophane) 10 unit subcut QPM 06/26/23 naproxen 500 mg tablet 500 mg PO BID PRN pain #30 tabs 11/07/23 Hospital Course Operations None and section Summary of Care Provided Minutes Spent on Discharge: 30 Hospital Course: The patient was admitted for induction of labor on 11/06/23. Due to intolerance to labor, an emergency section was performed on the morning of 11/07/23. There were no complications. On day #1 she was tolerating pain well and ambulating and was ready for discharge. Physical Exam HEENT normocephalic Resp normal respiratory effort and normal air movement GI soft to palpation, non-tender and non-distended Rectal Exam: other Other Details: Incision is clean, dry, and intact no CVA tenderness Extremity normal to inspection General Extremity: edema bilateral (trace ) Weight / BMI Weight Weight: 258 lb 12.8 oz Body Mass Index (BMI) 41.8 ABG / Lab / Microbiology Data 11/08/23 04:37 11/06/23 10:05 Laboratory: Laboratory Results - last 24 hr 11/07/23 11:13: POC Glucose 139 H 11/07/23 15:53: POC Glucose 125 H 11/07/23 21:59: POC Glucose 102 11/08/23 04:37: WBC 8.6, RBC 3.79 L, Hgb 12.0, Hct 36.3 L, MCV 95.8 D, MCH 31.7, MCHC 33.1 D, RDW Std Deviation 46.7 H, RDW Coeff of Lisbeth 13.5, Plt Count TNP, MPV 11.2 11/08/23 06:44: POC Glucose 76 D/C Instructions Discharge Diet: No restrictions Discharge Activity: May Not Drive (for 2 weeks or while taking narcotic pain medications.), May Shower and May Take a Tub Bath (in 7 days.) May shower in (days): 1 May resume sexual activity in: 4-6 weeks Weight Bearing Status: Full weight bearing Lifting Restrictions: 20 pounds Call your doctor if your incision/area has: Continuous Slow Oozing, Sudden Increased Bleeding, Increased Pain/ Swelling, Increased Redness and Foul Smelling Discharge Call your doctor if you observe: Fever of 101 or Higher and Using more than 1 pad per hour Suture Line Care: Avoid Pulling/Pushing and Avoid Pinching/Bending Change Dressing in: leave in place till F/U Cleanse incision/area with: Soap & Water and Keep Dressing Clean & Dry Please Follow Up With: Crystal Tyler, When: Call [phone] to make an appointment for an incision check in 1-2 weeks. Meaningful Use Info Meaningful Use Diagnoses (Choose all that apply): None applicable Discharge Plan Admission Admit Date/Time: 11/06/23 11:15 Primary Reason for Your Visit: section and tubal ligation Attending Provider: Crystal Tyler Primary Care Provider: Lindsey Dalal Discharge Orders/Prescriptions Prescriptions: New naproxen 500 mg tablet 500 mg PO BID PRN (Reason: pain) Qty: 30 0RF Continued fluoxetine [Prozac] 20 mg capsule 20 mg PO DAILY Qty: 30 12RF famotidine 10 mg tablet 10 mg PO DAILY PNV Tabs 20-1 20 mg iron- 1 mg tablet 1 tab PO DAILY Novolin N NPH U-100 Insulin 100 unit/mL suspension 10 unit subcut QPM (DME) blood-glucose meter Misc See Rx Instructions .MEDSUPPLY Qty: 1 0RF Rx Instructions: As directed- Test fasting and 2 hours after meals (DME) Blood Glucose Test Strip See Rx Instructions .Route Qty: 120 8RF Rx Instructions: As directed-fasting and 2 HR post meals (DME) lancets Misc See Rx Instructions .MEDSUPPLY Qty: 200 8RF Rx Instructions: As directed Discontinued aspirin [Adult Aspirin Regimen] 81 mg tablet,delayed release (DR/EC) 81 mg PO DAILY ondansetron 4 mg tablet,disintegrating See Rx Instructions .ROUTE .COMPLEX Qty: 60 0RF Dose Instruction: DISSOLVE 1 TABLET IN MOUTH EVERY 4 HOURS NEEDED FOR NAUSEA AND VOMITING Rx Instructions: DISSOLVE 1 TABLET IN MOUTH EVERY 4 HOURS NEEDED FOR NAUSEA AND VOMITING Referrals / Follow Up: Lindsey Dalal, [facility] DISORDERS COUNSELOR-C [Primary Care Provider] - Disposition Disposition (needs filled in before D/C Order can be placed): Home, Self Care
[2023-11-08] MEDS: Senna/Docusate Sodium 1 Tablet PO (11:22)
--- NOTE | 2023-11-08 13:23 | CASEMGMT ---
Social Work Assessment Labor and Delivery Unit Patient Address:[address] [place] [address] Phone number: [phone] Date of Referral: 11/07/23 Time of Referral:? 615 Referred By: Crystal Tyler Date of Intervention: ??11/08/23 Time of Intervention:? 1200 Reason for Referral:? hx anxiety and depression Sw compelted chart review and acknowledges social work consult due to maternal history of anxiety and depression. Sw presented to bedside and introduced self to mother of baby (TERESA- Elisa) and father of baby (NENO- Obed). Also present was maternal grandmother, sw asked if it was ok for sw to proceed with assessment. MOB stated that it was ok to ask questions. History obtained from: medical records, MOB and FOB Household composition: Currently residing in the family home is NENO MOORE, their two older children (Guanako (09/25/16) and Dann (02/05/18), maternal grandma and now baby boy. Parents state that their housing is safe and secure. Patient's parent/guardian status:? TERESA states that she and NENO have been together for 13 years. TERESA states that they went to the same school, had mutual friends and then started dating after both of them had graduated. No concerns of domestic violence or intimate partner violence. Medical History: ?TERESA is 28 year old female who is 3, para 2- now 3 following labor and delivery of . TERESA received routine care during with [facility]. TERESA delivered baby boy via emergency due to nonreassuring heart tones on 11/07/23. Baby boy, named Flaco, was born at 37 weeks gestation weighing 7lb 5oz and his apgars were 6, 7, and 8 at one, five and ten minutes of life respectfully. Baby will be followed by Dr. Enriquez. Educational Status:? Both parents graduated from high school. TERESA states that she attended some college, but did not graduate. No concerns with reading, learning or comprehension. Financial Status: Both parents are gainfully employed outside of the home. 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. He is able to take 1 week off of work. TERESA states that she is able to take 12 weeks off of work. Infant Supplies:?? Parents report to obtaining all necessary baby supplies, including: car seat, safe sleep space, clothes, diapers, wipes and bottles/ nipples. Childcare/Caregiver(s):? TERESA will be the primary caregiver along with NENO when he is not at work. When both parents are working maternal grandma will babysit and other two children. Transportation:?? Both parents report to having a valid drivers license and reliable transportation. No barriers at this time. Programs/Agencies Involved: ?Parents deny being linked to any financial community supports/ resources as they are over income at this time. MOB states that parents did engage in marriage counseling, but were told by their therapist they graduated from that program. ? Children Services/Legal Issues:??? No history of involvement. No issues or concerns warranting a referral to be made at this time. Behavioral Health Issues: ??Mental Health History: NENO denies any mental health diagnoses. TERESA states that she has been diagnosed with anxiety and depression. TERESA states that she did experience depression following the delivery of her first son. TERESA stated that at that time she was unengaged in most daily activities and was tearful all the time. TERESA states that she did not experience any symptoms following the delivery of her second son. TERESA reports that at this time she is prescribed fluoxetine to help global sales manager her mental health symptoms and hopes to prevent experiencing any symptoms. TERESA states that she feels good and knows who she can talk to if she were to experience any symptoms of baby blues or depression. ??? Substance Use History:?TERESA denies substance use prior to and during . ? Family History:??MOB denies family history of addiction or significant mental health diagnoses. ??? Drug Screens: No urine screens observed in chart review. ?? Family/Social Stressors:? Parents deny stressors or concerns at this time. Support Systems: MOB states that both sets of grandparents are supportive. TERESA also states that NENO is a natural support to her as well. Depression/Shaken Baby/Safe Sleeping:? August educated parents on signs and symptoms of baby blues and depression and anxiety. Sw provided literature for parents to review including appropriate coping mechanisms. Parents express understanding. Sw educated parents on shaken baby prevention and ABCs of safe sleep. Parents express understanding. ASSESSMENT:?MOB and baby admitted following labor and delivery of . This is third baby for parents. Parents have obtained all necessary baby supplies and have adequate supports in place. MOB made eye contact and maintained positive attitude/ outlook throughout assessment. MOB with mental health history including depression, and states that she is aware of signs and symptoms to be on the look out for. MOB states that FOB is a support and knows how to help her when she is struggling. Parents talkative and receptive to sw support and education provided. PLAN:? MOB and baby to be discharged when medically ready. ?No other services requested or indicated. Ra Yun, LAW ENFORCEMENT DIRECTOR, MUSICIAN INSTRUMENTAL
[2023-11-08 14:28] VITALS: BP 144/91; PULSE 80; RESP 16; TEMP 36; O2SAT 98
[2023-11-08] MEDS: FLUoxetine 20 MG Capsule PO (15:13)
[2023-11-08] MEDS: Famotidine 20 MG Tablet 10 MG PO (15:13)
== END 2023-11-08 15:40 | disposition home or self-care (01) | DRG 783 ==
LOC: WPOUT 11:34 → WP 11:34
PROVIDERS: Registered Nurse; Admitting Provider Obstetrics & Gynecology; PCP Nurse Practitioner Family; Referring Provider Obstetrics & Gynecology; Visit Provider Obstetrics & Gynecology
DX: O76 Abnormality in fetal heart rate and rhythm complicating labor and delivery (principal); O24.12 Pre-existing type 2 diabetes mellitus, in childbirth; O11.4 Pre-existing hypertension with pre-eclampsia, complicating childbirth; Z79.4 Long term (current) use of insulin; F41.8 Other specified anxiety disorders; O99.214 Obesity complicating childbirth; Z3A.37 37 weeks gestation of pregnancy; O69.2XX0 Labor and delivery complicated by other cord entanglement, with compression, not applicable or unspecified; Z37.0 Single live birth; O77.0 Labor and delivery complicated by meconium in amniotic fluid; O99.344 Other mental disorders complicating childbirth
CPT/HCPCS: 59025; 59050; 80053; 82570; 82962; 83615; 84156; 84550; 85027; 86780; 86850; 86900; 86901; 88302; 88307; 99221; J7120; A4216; G0378; J2405

== ENCOUNTER → 2023-12-18 | Outpatient (CLI) | payer OTHER, SELFPAY ==
--- OUTSIDE RECORDS SUMMARY | 2023-12-18 12:12 | XMS RPT_ITS | CCD ---
Author Name Unknown Address [address] [place] [address] Organization [facility] Care Team Providers Care Tailor'S Aide Name Role Phone Lory Silver MD Unavailable [phone] YOEL VERDUZCO Unavailable Unavailable BRENDA RODRIGUEZ Unavailable Unavailable NICO MOREJON Attending Unavailable NICO MOREJON Primary Care Unavailable NICO MOREJON Admitting Unavailable LEONEL, BRIANA Consulting Unavailable PROVIDER, UNKNOWN Consulting Unavailable LEONEL, BRIANA Consulting Unavailable UNGERER GEOVANNI RESEARCH TECH Attending Unavailable UNGERER, GEOVANNI RESEARCH TECH Primary Care Unavailable UNGERER, GEOVANNI RESEARCH TECH Admitting Unavailable PROVIDER, UNKNOWN Consulting Unavailable UNGERER, GEOVANNI RESEARCH TECH Attending Unavailable UNGERER, GEOVANNI RESEARCH TECH Primary Care Unavailable UNGERER, GEOVANNI RESEARCH TECH Admitting Unavailable LEONEL, BRIANA Consulting Unavailable PROVIDER, UNKNOWN Consulting Unavailable LEONEL, BRIANA Consulting Unavailable POMERETN, [facility] Attending Unava ilable POMERENE, [facility] Primary Care Unava ilable POMERENE, [facility] Admitting Unava ilable PROVIDER, UNKNOWN Consulting Unavailable ELEANOR LAZARO Attending Unavailable NO PRIMARY CAREMD Primary Care Unavailable LORY SILVER Referring UnavailBELKYS Reeves Attending Unavailable NO PRIMARY CARE, Primary Care Unavailable SP RUST Referring Unavailable ELEANOR LAZARO Attending Unavailable NO PRIMARY MD CARLEEN Primary Care Unavailable SP RUST Referring Unavailable ELEANOR LAZARO Attending Unavailable LORY SILVER Referring Unavailbetty JACKSON PRIMARY MD CARLEEN Primary Care Unavailable NO PRIMARY CAREMD Primary Care Unavailable BELKYS TEMPLE Attending Unavailable SP RUST Referring Unavailable NO PRIMARY CAREMD Primary Care Unavailable BELKYS TEMPLE Attending Unavailable CIPRIANO GOMEZ Referring Unavailable NO PRIMARY MD CARLEEN Primary Care Unavailable LORY SILVER Referring Unavailabl e CIPRIANO GOMEZ Attending Unavailable NO YASEMIN DURANT MD Primary Care Unavailable BELKYS TEMPLE Attending Unavailable LORY SILVER Referring Unavailabl e Medications Completed/Discontinued Medications Medication Drug Class(es) Dates Sig (Normalized) Sig (Original) metoclopramide 10 mg oral tablet (6 sources) Dopamine-2 Receptor Antagonist Start: 06-27-2017 take 1 tablet by mouth four times daily as needed REGLAN 10 MG TABS One tablet by mouth four times daily as needed METOCLOPRAMIDE HCL [id number] Lory Silver MD ondansetron 4 mg oral tablet (6 sources) Serotonin-3 Receptor Antagonist Start: 06-27-2017 ZOFRAN 4 MG TABS ONDANSETRON HCL [id number] Lory Silver MD VIT-FE FUMARATE-FA (6 sources) Start: 06-27-2017 VITAMINS 28-0.8 MG TABS VIT-FE FUMARATE-FA [id number] Lory Silver MD Problems Active Problems Problem Classification Problem [...] BMI (Body Mass Index) 40.02 kg/m2 Lory Silver MD [facility] 08-22-2017 15:21-0500 Body Temperature 97.9 [degF] Lory Silver MD [facility] 08-22-2017 15:21-0500 BP Diastolic 77 mm[Hg] Lory Silver MD [facility] 08-22-2017 15:21-0500 BP Systolic 120 mm[Hg] Lory Silver MD [facility] 08-22-2017 15:21-0500 Pulse (Heart Rate) 94 /min Lory Silver MD [facility] 08-22-2017 15:21-0500 Respiratory Rate 16 /min Lory Silver MD [facility] 08-22-2017 15:21-0500 Weight 112.49 kg Lory Silver MD [facility] 07-25-2017 16:03-0400 Height 167.64 cm Lory Silver MD [facility] 06-27-2017 14:52-0400 Body Temperature 96.4 [degF] Lory Silver MD [facility] 06-27-2017 14:52-0400 Height 167.64 cm Lory Silver MD [facility] 06-27-2017 14:52-0400 Weight 118.[address] Silver [address] [facility] Encounters Encounter Date Encounter Type Care Provider Facility Start: 10-30-2023 End: 10-30-2023 ambulatory MD NO PRIMARY CARE [facility] Start: 10-23-2023 End: 10-23-2023 ambulatory ELEANOR Kelly TEJAS [facility] Start: 10-17-2023 End: 10-17-2023 ambulatory ELEANOR Kelly TEJAS [facility] Start: 10-10-2023 End: 10-10-2023 ambulatory BELKYS Salcedo TEMPLEKELSEY [facility] Start: 09-25-2023 End: 09-25-2023 ambulatory ELEANOR Kelly TEJAS [facility] Start: 08-28-2023 End: 08-28-2023 ambulatory NO PRIMARY CARE [facility] Start: 07-31-2023 End: 07-31-2023 ambulatory NO PRIMARY CARE [facility] Start: 06-29-2023 End: 06-29-2023 ambulatory MD JACKSON [facility]IMARY [facility] Start: 10-12-2021 End: 10-12-2021 ambulatory GEOVANNI CARDONA [facility] Start: 07-02-2021 End: 07-02-2021 ambulatory BRIANA CASTANEDA [facility] Start: 04-28-2021 End: 04-28-2021 ambulatory NICO MOREJON [facility] Start: 09-30-2016 End: 08-17-2017 Ambulatory YOEL VERDUZCO [facility] Procedures Date Procedure Procedure Detail Performing Clinician Start: 08-22-2017 End: 08-22-2017 *CBC with Differential Lory tate MD Work Phone: Start: 08-22-2017 End: 08-22-2017 *HEBSAG - Hep B Surface Antigen 6510 Lory Silver MD Work Phone: Start: 08-22-2017 End: 08-22-2017 *HIV antibody Lory Silver MD Work Phone: Start: 08-22-2017 End: 08-22-2017 *TS Type and Screen Lory Silver MD Work Phone: Start: 08-22-2017 End: 08-22-2017 Reagin Ab [Presence] in Serum by RPR Lory Silver MD Work Phone: Start: 08-22-2017 End: 08-22-2017 Routine OB Visit (Global) Lory lockhart MD Work Phone: Start: 08-22-2017 End: 08-22-2017 Rubella virus Ab [Units/volume] in Serum Lory Silver MD Work Phone: Start: 08-22-2017 End: 08-22-2017 Us preg uterus after 1st trimest 10/16 gestation Lory Silver MD Work Phone: Start: 07-26-2017 End: 07-28-2017 *GESTGTT Gestational GRR 3Hr 100 gm Lory Silver MD Work Phone: Start: 07-25-2017 End: 07-25-2017 Routine OB Visit (Global) Lory lockhart MD Work Phone: Start: 06-27-2017 End: 07-26-2017 *CBC with Differential Lory tate MD Work Phone: Start: 06-27-2017 End: 07-26-2017 *CMP Complete Metabolic Panel Lory Silver MD Work Phone: Start: 06-27-2017 End: 07-26-2017 *HEBSAG - Hep B Surface Antigen 6510 Lory Silver MD Work Phone: Start: 06-27-2017 End: 07-26-2017 *HIV antibody Lory Silver MD Work Phone: Start: 06-27-2017 End: 07-26-2017 *MISC - Miscellaneous Lab Test #1 Lory Silver MD Work Phone: Start: 06-27-2017 End: 07-26-2017 *TS Type and Screen Lory Silver MD Work Phone: Start: 06-27-2017 End: 07-26-2017 Bacteria identified in Urine by Culture Lory Silver MD Work Phone: Start: 06-27-2017 End: 07-26-2017 Protein/Creatinine [Mass Ratio] in Urine Lory Silver MD Work Phone: Start: 06-27-2017 End: 07-26-2017 Reagin Ab [Presence] in Serum by RPR Lory Silver MD Work Phone: Start: 06-27-2017 End: 06-27-2017 Routine OB Visit (Global) Lory lockhart MD Work Phone: Start: 06-27-2017 End: 07-26-2017 Rubella virus Ab [Units/volume] in Serum Lory Silver MD Work Phone: Plan of Treatment Date Care Activity Detail Author Start: 09-19-2017 End: 09-19-2017 Appointment Appointment [facility] Start: 08-22-2017 End: 08-22-2017 Appointment Appointment [facility] Start: 08-22-2017 End: 08-22-2017 *CBC with Differential *CBC with Differential [facility] Start: 08-22-2017 End: 08-22-2017 *HEBSAG - Hep B Surface Antigen 6510 *HEBSAG - Hep B Surface Antigen 6510 [facility] Start: 08-22-2017 End: 08-22-2017 *HIV antibody *HIV antibody [facility] Start: 08-22-2017 End: 08-22-2017 *TS Type and Screen *TS Type and Screen [facility] Start: 08-22-2017 End: 08-22-2017 Reagin antibody presence *RPR [facility] Start: 08-22-2017 End: 08-22-2017 Rubella virus Ab [Units/volume] in Serum *Rubella Screen [facility] Start: 08-22-2017 End: 08-22-2017 Us preg uterus after 1st trimest / gestation US OB, >14 weeks [facility] Start: 07-26-2017 End: 07-28-2017 *GESTGTT Gestational GRR 3Hr 100 gm *GESTGTT Gestational GRR 3Hr 100 gm [facility] Start: 06-27-2017 End: 07-26-2017 *CBC with Differential *CBC with Differential [facility] Start: 06-27-2017 End: 07-26-2017 *CMP Complete Metabolic Panel *CMP Complete Metabolic Panel [facility] Start: 06-27-2017 End: 06-27-2017 *GC/Chlamydia *GC/Chlamydia [facility] Start: 06-27-2017 End: 07-26-2017 *HEBSAG - Hep B Surface Antigen 6510 *HEBSAG - Hep B Surface Antigen 6510 [facility] Start: 06-27-2017 End: 07-26-2017 *HIV antibody *HIV antibody [facility] Start: 06-27-2017 End: 07-26-2017 *MISC - Miscellaneous Lab Test #1 *MISC - Miscellaneous Lab Test #1 [facility] Start: 06-27-2017 End: 07-26-2017 *TS Type and Screen *TS Type and Screen [facility] Start: 06-27-2017 End: 07-25-2017 GTT (glucose after 1hr PO glucose) *Glucose, Post Glucose Dose [facility] Start: 06-27-2017 End: 07-26-2017 Protein/Creatinine [Mass Ratio] in Urine *PROCRER Protein/Creat Ratio, Urine [facility] Start: 06-27-2017 End: 07-26-2017 Reagin antibody presence *RPR [facility] Start: 06-27-2017 End: 07-26-2017 Rubella virus Ab [Units/volume] in Serum *Rubella Screen [facility] Start: 06-27-2017 End: 07-26-2017 Urine culture, bacteria *CUUR - Culture, Urine ([place] Count) [facility] Payers Date Payer Category Payer Unknown [id number] 1995 Unknown [id number] [id number] 1995 Unknown [id number] [id number] 1995 Unknown [id number] 2.16. [id number] 1995 Unknown [id number] 2.16. [id number] 1995 Unknown [id number] 2.16. [id number] 1995 Unknown [id number] 2.16 [id number] 1995 Unknown [id number] 2.16 [id number] 1995 Unknown [id number] 2.16 [id number] 1995 Unknown [id number] 2.. [id number] 1995 Unknown [id number] 2.. [id number] Unknown [id number] Summary Purpose Family History No Family History Records FoundNo Family History Records FoundNo Family History Records FoundNo Family History Records Found Advance Directives No Advanced Directives Records FoundNo Advanced Directives Records FoundNo Advanced Directives Records FoundNo Advanced Directives Records Found Additional Source Comments INFORMATION SOURCE (unrecogn ized section and content) DATE CREATED AUTHOR AUTHOR'S ORGANIZ ATION 04/30/2021 [facility] DATE CREATED AUTHOR AUTHOR'S ORGANIZ ATION 10/12/2021 [facility] DATE CREATED AUTHOR AUTHOR'S ORGANIZ ATION 10/31/2023 [facility] FOR RECORDS PERTAINING TO PATIENTS WHO ARE [...] BE BASED ON THE PRIMARY CLINICAL RECORDS. [facility]. provides no warranty or guarantee of the accuracy or completeness of information in this document.
[2023-12-21 12:58] LABS: HPV Reflexed? NOT INDICATED
== END | disposition home or self-care (01) ==
LOC: LABSPEC 11:49
PROVIDERS: PCP Nurse Practitioner Family; Referring Provider Obstetrics & Gynecology; Visit Provider Obstetrics & Gynecology
DX: Z12.4 Encounter for screening for malignant neoplasm of cervix (principal)
CPT/HCPCS: 88175; G0145

== ENCOUNTER → 2025-05-13 | Outpatient (CLI) | payer OTHER, SELFPAY ==
--- NOTE | 2025-05-13 09:40 | RAD_ITS ---
PROCEDURE: ABDOMEN SINGLE VIEW 05/13/2025 REASON FOR EXAM: CALCULUS OF URETER TECHNIQUE: ABDOMEN SINGLE VIEW COMPARISON: CT 07/24/2023 FINDINGS: On the left, there is a 5 mm stone which may be in the left renal pelvis and possibly obstructing the pelvicaliceal system. Additional 3 mm stone in that region. No definite renal stones otherwise noted. Multiple pelvic phleboliths. No definite ureteral stones. Clear lung bases. No free air. Nondistended bowel. Status post cholecystectomy. RAD/Abdomen Single View IMPRESSION: There are least 2 stones in the left renal pelvic region, if there is concern f or acute obstruction, consider CT. [facility]
== END | disposition home or self-care (01) ==
LOC: RAD 09:36
PROVIDERS: PCP Family Medicine; Referring Provider Urology; Visit Provider Urology
DX: N20.1 Calculus of ureter (principal)
CPT/HCPCS: 74018

== ENCOUNTER 2025-05-14 13:24 | Day surgery (SDC) | payer OTHER, SELFPAY ==
[2025-05-14] VITALS (7 sets, daily range): BP systolic 105–129; BP diastolic 69–83; PULSE 65–99; RESP 15–16; TEMP 36.9–37.2; O2SAT 97–100; BMI 38.7
--- NOTE | 2025-05-14 07:12 | PCM.HP.STD ---
HPI - General General Date of Service: 05/14/25 Chief Complaint: Left kidney stone HPI Narrative JAY SMITH, is a 29 F who presents for left extracorporeal shockwave lithotripsy possible stent placement of the left side for kidney stone PFSH Medical History (Updated 05/13/25 @ 13:45 by Octaviano Dowd) Wears glasses Wears partial dentures Wears contact lenses Depression Anxiety Gastric reflux Non-smoker Myopia of both eyes Home Medications ?Medication ?Instructions ?Recorded ?Last Taken ?Type fluoxetine 20 mg capsule 20 mg PO DAILY #30 caps 04/23/24 Unknown Rx losartan 25 mg tablet 25 mg PO DAILY #30 tabs 06/05/24 Unknown Rx metformin 500 mg tablet,extended 1,000 mg PO DAILY 05/13/25 Unknown History release 24 hr Allergy/AdvReac Type Severity Reaction Status Date / Time No Known Allergies Allergy Verified 05/13/25 13:37 Family History Mother Hypertension Surgical History (Updated 05/13/25 @ 13:45 by Octaviano Dowd) H/O bilateral salpingectomy H/O: [place] teeth extracted Hx laparoscopic cholecystectomy Social History (Updated 12/18/23 @ 10:04 by Magaly Squires) adopted: No household members: spouse, children and other details: Mother number of children: 3 current occupational status: employed current occupation: [employer] current occupational exposures/hazards: No pets and animals: Yes pets and animals: dog(s) history of recent travel: Yes ([place]) out of state: Yes out of country: No sexually active: Yes Smoking Status: Never smoker second hand exposure: No alcohol intake: never substance use type: does not use well-balanced diet: daily or most days caffeine: Yes Type: tea Number of servings: 1 eating out: 1-3 times/week during the past year weight has: increased > 10 lbs what type of physical activity do you participate in: walking frequency: 3-4 times per week duration: 15-30 minutes/day linnea/mosque: None seatbelt use: always do you feel safe at home: Yes additional social history: spouse Gary Palumbo
--- NOTE | 2025-05-14 14:26 | PCM.PRE.AN2 ---
ASA Classification* ASA Classification ASA Classification: 2 Assessment & Plan Anesthesia* Anesthesia Assessment Anesthesia Assessment: Discussed sedation and/or anesthesia options, risks, benefits, and alternatives with patient/parents/legal guardian/POA. Questions invited. The patient/parents/legal guardian/POA seems to understand and agrees to proceed with anesthesia plan. Reviewed the physical assessment, medical history, allergy history and patient home medications list prior to surgery/procedure/anesthetic and documented any changes. Performed airway and anesthesia risk assessments. Anesthesia Type Anesthesia Type: General History Source History Obtained from:: Patient and Chart Anesthesia Focused Assessment* Oxygen Delivery Method: Room Air Airway Assessment Mouth opens: >3 cm Mallampati Score: I Teeth Condition: Partial Neck Range of motion (ROM): Full ROM (secure upper left partial incisor, patient can sleep with it...we will not remove for surgery) Labs Anesthesia Preop lab: CBC WBC 8.6 K/mm3 (4.4-11.0) 11/08/23 04:37 11/08/23 RBC 3.79 M/mm3 (4.2-5.4) L 11/08/23 04:37 11/08/23 Hgb 12.0 g/dL (12.0-15.0) 11/08/23 04:37 11/08/23 Hct 36.3 % (37-47) L 11/08/23 04:37 11/08/23 Plt Count TNP 11/08/23 04:37 11/08/23 CHEMISTRY Potassium 4.0 mmol/L (3.5-5.1) 11/06/23 10:05 11/06/23 Sodium 137 mmol/L (136-145) 11/06/23 10:05 11/06/23 BUN 7 mg/dL (7-18) 11/06/23 10:05 11/06/23 Creatinine 0.52 mg/dL (0.55-1.02) L 11/06/23 10:05 11/06/23 Glucose 89 mg/dL (74-106) 11/06/23 10:05 11/06/23 POC Glucose 76 mg/dL (74-106) 11/08/23 06:44 11/08/23 TSH 0.96 uIU/mL (0.358-3.74) 03/23/23 09:35 03/23/23 COAG PT 12.7 SECONDS (11.7-14.9) 09/23/16 10:50 09/23/16 Tst Clinic Negative 03/15/18 14:22 03/15/18 Pre-Assessment Diagnosis/Proposed Procedure Planned Operative Procedure(s): LEFT EXTRACORPOREAL SHOCK WAVE LITHOTRIPSY Anesthesia History 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 When Was Last Pacemaker Check QUESTION #4 FULL TEXT: You/Your Family Experience fever (hyperthermia) with Anesthesia Last Oral Intake Last Oral intake: Last Oral Intake NPO since Meds taken in AM with sips of water? Meds patient instructed to take am of surgery PONV PONV - bleach liquor maker: PONV - bleach liquor maker Female Yes 05/13/25 13:38 HX of Motion Sickness No 05/13/25 13:38 HX of N/V After Surgery No 05/13/25 13:38 Non-Smoker Yes 05/13/25 13:38 Duration of Surgery greater No 05/13/25 13:38 than 60 minutes Number of Risk Factors 2 05/13/25 13:38 PONV Score Moderate Risk 05/13/25 13:38 Height & Weight Height & Weight: Anesthesia: Height & Weight Height 5 ft 6 in 12/18/23 10:04 Respiratory Assessment Respiratory Assessment - bleach liquor maker: Respiratory Tract Infection Hx - bleach liquor maker Hx Respiratory Tract Infection No 05/13/25 13:38 STOP Sleep Apnea STOP Sleep Apnea - bleach liquor maker: STOP Sleep Apnea - bleach liquor maker Hx Hypertension Yes: CONTROLLED WITH MEDS 05/13/25 13:38 Hx Sleep Apnea No 05/13/25 13:38 CPAP BIPAP Do you snore loudly (louder No 05/13/25 13:38 than talking or can be heard Do you often feel tired/ No 05/13/25 13:38 fatigued/ sleepy during daytime? Has anyone observed you stop No 05/13/25 13:38 breathing during sleep? STOP Results Negative 05/13/25 13:38 QUESTION #5 FULL TEXT : Do you snore loudly (louder than talking or can be heard through closed doors)? Tobacco Use History Tobacco Use History - bleach liquor maker: Tobacco Use History - bleach liquor maker Tobacco Use Smoking Status Never smoker 05/13/25 13:38 Hx Tobacco Use No 05/13/25 13:38 Years Smoking Packs Smoked per Day Smoking Cessation Date was within the last 15 years Hx Smoking Cessation Date Hx Smoking Cessation Counseling Hematologic Medial History Hematologic Hx - bleach liquor maker: Hematologic Medical Hx - documentation liaison Hx of Blood Transfusion No 05/13/25 13:38 Hx of Transfusion in last 3 No 05/13/25 13:38 Months Date of Last Transfusion (if within last 3 months) Ever experience any problems No 05/13/25 13:38 with transfusion(s)? Specify any problems Hx of Preganancy in last 3 No 05/13/25 13:38 Months Nurse Filling Out Transfusion [email or web address] 05/13/25 13:38 & Questions: Date: 05/13/25 05/13/25 13:38 Time: 13:40 05/13/25 13:38 Patient unable to answer at this time (ie. confused, unrespo /Reproduction History /Reproductive History - bleach liquor maker: /Reproductive Hx- bleach liquor maker Hx Now No 05/13/25 13:38 Gestational Age (in weeks): EDC: Hx Hx Para Hx Section SAB No 05/13/25 13:38 Active Medications Active Medications: Current Medications Generic Name Dose Route Start Last Admin Trade Name Freq PRN Reason Stop Dose Admin Cefazolin Sodium 2 gm/ Sodium 110 mls @ 200 mls/hr 05/14/25 16:15 Chloride IV 05/14/25 16:47 INTRAOP ONE [facility] Medical History (Updated 05/13/25 @ 13:45 by Octaviano Dowd) Wears glasses Wears partial dentures Wears contact lenses Depression Anxiety Gastric reflux Non-smoker Myopia of both eyes Home Medications ?Medication ?Instructions ?Recorded ?Last Taken ?Type fluoxetine 20 mg capsule 20 mg PO DAILY #30 caps 04/23/24 Unknown Rx losartan 25 mg tablet 25 mg PO DAILY #30 tabs 06/05/24 Unknown Rx metformin 500 mg tablet,extended 1,000 mg PO DAILY 05/13/25 Unknown History release 24 hr Allergy/AdvReac Type Severity Reaction Status Date / Time No Known Allergies Allergy Verified 05/13/25 13:37 Family History Mother Hypertension Surgical History (Updated 05/13/25 @ 13:45 by Octaviano Dowd) H/O bilateral salpingectomy H/O: [place] teeth extracted Hx laparoscopic cholecystectomy Social History (Updated 12/18/23 @ 10:04 by Magaly Squires) adopted: No household members: spouse, children and other details: Mother number of children: 3 current occupational status: employed current occupation: [employer] current occupational exposures/hazards: No pets and animals: Yes pets and animals: dog(s) history of recent travel: Yes ([place]) out of state: Yes out of country: No sexually active: Yes Smoking Status: Never smoker second hand exposure: No alcohol intake: never substance use type: does not use well-balanced diet: daily or most days caffeine: Yes Type: tea Number of servings: 1 eating out: 1-3 times/week during the past year weight has: increased > 10 lbs what type of physical activity do you participate in: walking frequency: 3-4 times per week duration: 15-30 minutes/day linnea/restorationist: None seatbelt use: always do you feel safe at home: Yes additional social history: spouse Obed- [place] Review of Systems (Anesthesia) ROS Narrative System reviewed and no additional complaints, except as documented.
[2025-05-14] MEDS: Lactated Ringers 1,000 ML 15 ML IV (14:49)
--- NOTE | 2025-05-14 18:06 | OP.PCM_ITS ---
Operative Report (Standard) Operative Information Date of Procedure: 05/14/25 Pre-Operative Diagnosis: Left kidney stone Post-Operative Diagnosis: The same Surgery/Procedure Performed: Left ESWL inclusion special education teacher: No Type of Anesthesia: General RN Documented Start/Stop Times: Operation Date: 05/14/25 16:15 Case Time Into Pre-Op 05/14/25 14:30 Anesthesia Start 05/14/25 17:31 Into Room 05/14/25 17:31 Procedure Start 05/14/25 17:43 Procedure Start Time: 17:43 Procedure Stop Time: 18:07 Select all DRAINS/GRAFTS/IMPLANTS that apply: None Estimated Blood Loss: None Specimen collected: No Description of surgery: Patient presents to the hospital for treatment of a kidney stone with shockwave lithotripsy. In the preoperative area and x-ray was done to confirm the location of the stone. The x-ray was reviewed and the stone location was reviewed. In the preoperative setting I spoke with the patient regarding the treatment of the stone how the treatment would be conducted and the expectations after surgery. The patient understands there is a risk of bleeding and infection. Also discussed the very rare risk of hematoma or damage to the kidney. We also discussed the risk that the shockwave machine will fail to break the stone adequately and that the patient may need other surgical procedures. I also discussed the possibility that the patient may need a stent after the procedure. After reviewing the procedure with the patient, the patient is signed the consent form all the patient's questions were addressed and was taken back to the operating room for treatment of a kidney stone. Patient was taken back to the operating room, the patient was identified by the nursing staff, I identified the side of the treatment and the patient side of treatment had been marked by my initials. The patient underwent general anesthetic and was placed supine on the lithotripter table. I then used fluoroscopy to identify the stone on the left side. I then positioned the patient under the lithotripter and I used triangulation technique to identify the location of the stone and then I made sure that the stone was engaged in the F2 focal point of F2 Donier lithoprior machine. Once the patient was positioned appropriately and the stone was identified and placed in the F2 focal point of the lithotripter machine I then proceeded with shockwave lithotripsy. In the beginning the shockwave was delivered at a rate of 90 shocks per minute, anesthesia monitored the EKG for any ectopy. The power was slowly increased to 5 kV and subsequently at the 7 kV. I then proceeded with the treatment with shock wave therapy and around during the treatment to make sure the stone stayed in the F2 focal point during the entire treatment and after 3000 shockwaves were delivered to the stone under fluoroscopic guidance the treatment was completed. The patient was given instructions to call the office to make an a follow-up appointment with an x-ray to evaluate the success of the treatment, patient understands that its possible the stones may need another procedure. At this point the patient's anesthetic was reversed patient was extubated and taken back to the PACU in stable condition. Surgical Findings: Stone in the left kidney broke up really well with shockwave lithotripsy t reatments Complications Complications: No Admit VTE Documentation VTE Present on Admission: No VTE Mechan Device Prophylaxis: SCD's VTE Pharm Prophylaxis ordered?: No
--- NOTE | 2025-05-14 18:06 | PCM.DC ---
Discharge Instructions DC O2, CPAP, BIPAP needs Home O2 Discharge instructions: No Dressing / Incision Discharge Activity: Return to Normal Activity and May Not Drive (while taking narcotic pain medications.) Dressing / Incision Call your doctor if you observe: Fever of 101 or Higher and Uncontrolled pain Follow Up Care Please Follow Up With: Ravinder Crook MD When: Call [phone] for an appointment Test Results: Test results from this visit will be discussed in further detail at your follow-up appointment, if applicable. Discharge Plan Admission Primary Reason for Your Visit: ESWL left Attending Provider: Ravinder Crook Primary Care Provider: Sandra Mo Instructions Print Language: Greenlandic Discharge Orders/Prescriptions Prescriptions: New ciprofloxacin HCl [Cipro] 500 mg tablet 500 mg PO BID Qty: 6 0RF oxycodone 5 mg tablet 5 mg PO Q6H PRN (Reason: pain) 7 Days Qty: 14 0RF No Action metformin 500 mg tablet extended release 24 hr 1,000 mg PO DAILY fluoxetine 20 mg capsule 20 mg PO DAILY Qty: 30 6RF losartan 25 mg tablet 25 mg PO DAILY Qty: 30 12RF Referrals / Follow Up: Ravinder Crook MD [Med Staff - Active Staff] - Sandra Mo PA-C [Primary Care Provider] - Disposition Disposition (needs filled in before D/C Order can be placed): Home, Self Care
--- NOTE | 2025-05-14 18:44 | PCM.POST.ANE ---
Anesthesia: Postop Eval I Current Vital Signs Temperature: 98.4 F Pulse Rate: 99 Blood Pressure: 128/69 Respiratory Rate: 15 Pulse Ox: 97 Oxygen Delivery Method: Room Air Assessment Airway patent: Yes Spontaneous unlabored respirations: Yes Mental status: Asleep nausea: No Vomiting: No Anesthesia Complication: No Fluid Hydration Crystalloid volume administer (ml): 750 Total IV fluid infused: 750 Progress Note Anesthesia document: Postop Eval 1 completed: Yes
--- NOTE | 2025-05-14 18:45 | PCM.POSTANE2 ---
Anesthesia Postop Eval I Sum Postop Eval Completion status Anesthesia document: Postop Eval 1 completed: Yes Anesthesia Postop Eval I Summary Anesthesia Postop Eval I Summary: Anesthesia Postop Eval I: Assessment Summary Airway patent Yes 05/14/25 18:45 Spontaneous unlabored Yes 05/14/25 18:45 respirations Mental status Asleep 05/14/25 18:45 nausea No 05/14/25 18:45 Vomiting No 05/14/25 18:45 Anesthesia Postop Eval I: Fluid Summary Crystalloid volume administer 750 05/14/25 18:45 (ml) Colloids volume administered ( ml) Blood Product volume administered (ml) Total IV fluid infused 750 05/14/25 18:45 Anesthesia Postop Eval I: Summary Notes Anesthesia Complication No 05/14/25 18:45 Anesthesia Complication Comment: Post-operative progress note Anesthesia: Postop Eval II Evaluation Mental status: Awake and Calm Pain Level: 0 nausea: No Vomiting: No Progress Note Post-operative progress note: Tolerated well. Complications Anesthesia Complication: No
== END 2025-05-14 19:18 | disposition home or self-care (01) ==
LOC: SDC 13:24 → AC 13:25
PROVIDERS: PCP Family Medicine; Referring Provider Urology; Visit Provider Urology
PROC: (CPT 50590; principal; 2025-05-14 16:05)
DX: N20.0 Calculus of kidney (principal); I10 Essential (primary) hypertension; Z79.899 Other long term (current) drug therapy
CPT/HCPCS: 00873; J2405